=== PATIENT | female | born 1960 | race Caucasian/White ===

== ENCOUNTER 2018-01-29 19:49 | Inpatient (IN) | payer BC ==
[~2018-01-29] VITALS: Ht 165.1 cm; Wt 72.1 kg
[2018-01-29] MEDS ORDERED: ACETAMINOPHEN 325 MG TAB PO ONE (20:45)
[2018-01-29 20:52] LABS: BASOPHILS % 0.1 % (0.0-1.0); EOSINOPHILS # (AUTO) 0.5 (0.0-0.4); EOSINOPHILS % 5.3 % (0.0-6.0); LYMPHOCYTES # (AUTO) 1.4 (1.0-3.2); LYMPHOCYTES % 14.1 % (18.0-39.1); MONOCYTES # (AUTO) 0.6 (0.2-0.8); MONOCYTES % 6.1 % (4.4-11.3); NEUTROPHILS # (AUTO) 7.3 (2.1-6.9); NEUTROPHILS % 72.1 % (38.7-80.0); PLATELET COUNT 276 x10e3/uL (140-360); RED CELL DISTRIBUTION WIDTH 23.4 % (11.7-14.4)
[2018-01-29 20:53] LABS: HEMOGLOBIN 3.9 g/dL (12.0-16.0)
[2018-01-29 21:00] LABS: INR 1.28
[2018-01-29 21:01] LABS: PARTIAL THROMBOPLASTIN TIME 34.7 seconds (23.8-35.5)
[2018-01-29 21:08] LABS: % IRON SATURATION 23 % (15-50); ALANINE AMINOTRANSFERASE 72 IU/L (0-55); ALBUMIN 3.5 g/dL (3.5-5.0); ALBUMIN/GLOBULIN RATIO 1.3 (0.8-2.0); ALKALINE PHOSPHATASE 96 IU/L (40-150); ANION GAP 14.2 mmol/L (8-16); BLOOD UREA NITROGEN 8 mg/dL (7-26); BUN/CREATININE RATIO 13 (6-25); CARBON DIOXIDE 24 mmol/L (22-29); CHLORIDE 101 mmol/L (98-107); CREATINE KINASE 26 IU/L (29-168); CREATININE, SERUM 0.63 mg/dL (0.57-1.11); EST GLOMERULAR FILTRATION RATE > 60 ML/MIN (60-); GLUCOSE 206 mg/dL (74-118); IRON 76 ug/dL (50-170); POTASSIUM 4.2 mmol/L (3.5-5.1); SODIUM 135 mmol/L (136-145); TOTAL IRON BINDING CAPACITY 328 ug/dL (261-478); TRANSFERRIN 234 mg/dL (180-382)
[2018-01-29] MEDS ORDERED: SODIUM CHLORIDE 0.9% 250ML 250 ML IV ONE (21:15)
[2018-01-29 21:22] LABS: BILIRUBIN,URINE NEGATIVE (NEGATIVE); CLARITY,URINE CLEAR (CLEAR); COLOR,URINE YELLOW (YELLOW); KETONES,URINE NEGATIVE (NEGATIVE); LEUKOCYTE ESTERASE ,URINE NEGATIVE (NEGATIVE); NITRITE,URINE NEGATIVE (NEGATIVE); PROTEIN,URINE DIPSTICK NEGATIVE (NEGATIVE); URINE UROBILINOGEN 0.2 mg/dL (0.2 - 1)
[2018-01-29 21:27] LABS: FERRITIN 377.27 ng/mL (4.63-204.00)
[2018-01-29 21:42] LABS: BACTERIA,URINE FEW /HPF; EPITHELIAL CELLS,URINE RARE /LPF
--- NOTE | 2018-01-29 21:43 | Diagnostic Imaging Report ---
EXAMINATION: CHEST SINGLE (PORTABLE) INDICATION: Shortness of breath COMPARISON: None FINDINGS: TUBES and LINES: None. LUNGS: Lungs are well inflated. Lungs are clear. There is no evidence of pneumonia or pulmonary edema. PLEURA: No pleural effusion or pneumothorax. HEART AND MEDIASTINUM: The cardiomediastinal silhouette is unremarkable. BONES AND SOFT TISSUES: There are degenerative changes in the thoracic spine. Soft tissues are unremarkable. UPPER ABDOMEN: No free air under the diaphragm. IMPRESSION: No acute thoracic abnormality. Signed by: Dr. Wilfredo Nelson M.D. on 01/29/2018 9:40 PM
[2018-01-29 21:54] LABS: ANISOCYTOSIS SLIGHT; EOSINOPHILS % (MANUAL) 9 % (0-7); LYMPHOCYTES % (MANUAL) 14 % (19-48); MONOCYTES % (MANUAL) 5 % (3.4-9.0); NEUTROPHILS % (MANUAL) 71 % (40-74); NUCLEATED RED BLOOD CELLS 5
[2018-01-29 21:55] LABS: HYPOCHROMASIA MARKED; PLATELET ESTIMATE ADEQUATE; PLATELET MORPHOLOGY COMMENT NORMAL; RBC MORPHOLOGY COMMENT ABNORMAL
[2018-01-29] MEDS ORDERED: SODIUM CHLORIDE FLUSH 10 ML SYR INJ PRN (22:00)
[2018-01-29] MEDS ORDERED: ONDANSETRON HCL INJ 2 MG/ML VIAL IV PRN (22:00)
[2018-01-29] MEDS ORDERED: CYANOCOBALAMIN INJ 1,000 MCG/ML VIAL IM SCH (22:45)
[2018-01-29 23:10] VITALS: BP 119/57
[2018-01-30] VITALS (7 sets, daily range): BP systolic 113–137; BP diastolic 56–74
[2018-01-30] MEDS: FAMOTIDINE 20 MG/2 ML VIAL IV SCH ×3 (00:16→21:51)
[2018-01-30 05:59] LABS: BASOPHILS % 0.2 % (0.0-1.0); EOSINOPHILS # (AUTO) 0.3 (0.0-0.4); LYMPHOCYTES # (AUTO) 2.6 (1.0-3.2); LYMPHOCYTES % 23.2 % (18.0-39.1); MEAN CORPUSCULAR HEMOGLOBIN 38.7 pg (28-32); MEAN CORPUSCULAR HGB CONC 29.8 g/dL (31-35); MEAN CORPUSCULAR VOLUME 130.1 fL (81-99); MONOCYTES # (AUTO) 0.8 (0.2-0.8); MONOCYTES % 7.3 % (4.4-11.3); NEUTROPHILS # (AUTO) 7.2 (2.1-6.9); NEUTROPHILS % 63.9 % (38.7-80.0); PLATELET COUNT 253 x10e3/uL (140-360); RED BLOOD COUNT 0.93 x10e6/uL (3.6-5.1); RED CELL DISTRIBUTION WIDTH 22.5 % (11.7-14.4)
[2018-01-30 06:03] LABS: HEMOGLOBIN 3.6 g/dL (12.0-16.0)
[2018-01-30 06:06] LABS: HEMATOCRIT 12.1 % (34.2-44.1)
[2018-01-30 06:49] LABS: ALANINE AMINOTRANSFERASE 60 IU/L (0-55); ALBUMIN 3.2 g/dL (3.5-5.0); ALBUMIN/GLOBULIN RATIO 1.2 (0.8-2.0); ALKALINE PHOSPHATASE 85 IU/L (40-150); BLOOD UREA NITROGEN 7 mg/dL (7-26); BUN/CREATININE RATIO 11 (6-25); CALCIUM 8.6 mg/dL (8.4-10.2); CARBON DIOXIDE 25 mmol/L (22-29); CHLORIDE 99 mmol/L (98-107); CHOL/HDL RATIO 4.2 (3.0-3.6); CHOLESTEROL 109 MD/DL (0-199); CREATININE, SERUM 0.61 mg/dL (0.57-1.11); EST GLOMERULAR FILTRATION RATE > 60 ML/MIN (60-); GLUCOSE 175 mg/dL (74-118); HDL CHOLESTEROL 26 MG/DL (40-60); LDL CHOLESTEROL 50 MG/DL (60-130); SODIUM 131 mmol/L (136-145); TRIGLYCERIDES 167 MG/DL (0-149)
[2018-01-30 07:46] LABS: FOLATE 14.1 ng/mL (7.0-15.4)
[2018-01-30] MEDS ORDERED: DEXTROSE 50% SYRINGE 50 ML IV PRN (08:45)
[2018-01-30] MEDS: ACETAMINOPHEN 325 MG TAB PO PRN ×2 (08:51→17:21)
[2018-01-30] MEDS ORDERED: CYANOCOBALAMIN INJ 1,000 MCG/ML VIAL IM SCH (09:00)
[2018-01-30 09:01] LABS: ANISOCYTOSIS MODERATE; EOSINOPHILS % (MANUAL) 3 % (0-7); HYPOCHROMASIA MARKED; LYMPHOCYTES % (MANUAL) 23 % (19-48); MONOCYTES % (MANUAL) 2 % (3.4-9.0); MYELOCYTES % (MANUAL) 3 % (0-0); NEUTROPHILS % (MANUAL) 69 % (40-74); NUCLEATED RED BLOOD CELLS 2; PLATELET ESTIMATE ADEQUATE; PLATELET MORPHOLOGY COMMENT NORMAL; POIKILOCYTOSIS MODERATE; POLYCHROMASIA FEW; RBC MORPHOLOGY COMMENT ABNORMAL
--- NOTE | 2018-01-30 09:09 | History and Physical ---
PRIMARY CARE PHYSICIAN: Dr. Trey Venegas CONSULTANTS: 1. Dr. Cristóbal Lundberg 2. Dr. Marcela Buchanan CHIEF COMPLAINT: Chest pain, shortness of breath, and severe anemia of 3.6 hemoglobin, hematocrit 12.1. HISTORY: Elfed-aafo-movm-old female who was recently diagnosed with anemia, hemoglobin above 5. Patient came in, however, now within a week with increasing chest pain and shortness of breath. Her hemoglobin and hematocrit now are 3.6 and 12.1. BUN and creatinine are 7 and 0.6 respectively. Platelets is 253,000 and WBC is 11.2. Patient is pending for blood transfusion and further workup. The patient is otherwise stable. She had no previous history of anemia. She has no previous surgical intervention or any chronic medical problem. PAST MEDICAL HISTORY: Unremarkable. PAST SURGICAL HISTORY: Unremarkable. SOCIAL HISTORY: Patient lives at home with her family, very supportive. No smoking, no alcohol consumption. No recent traveling. FAMILY HISTORY: Noncontributory. REVIEW OF SYSTEMS: Shortness of breath, chest pain. PHYSICAL EXAMINATION: VITAL SIGNS: Temperature is now 100, blood pressure 126/58, pulse rate is high 110, respirations 20. GENERAL: The patient is anxious, but she is not in any distress. HEENT: Normocephalic, atraumatic. Sclerae anicteric. NECK: Supple grossly. PULMONARY: Diminished breath sounds without any wheezing or rales. CARDIOVASCULAR: Tachycardia. ABDOMEN: Soft, nontender. No distention. EXTREMITIES: No gross cyanosis. Positive 1+ edema. NEUROLOGIC: No gross focal deficit. LABORATORY: Sodium is 131, potassium 4, chloride 99, bicarb 25, BUN 7, creatinine 0.6, glucose is 175. WBC is 11.2, hemoglobin 3.6, hematocrit 12.1, platelets is 253,000. AST is 57, ALT is 72, alkaline phosphatase is 96. Iron saturation is 23, total iron binding capacity 328, iron 76, calcium 9.0. Ferritin is 377. Total bilirubin is 3.6, CK is 26, albumin 3.5. Vitamin B12 level is greater than 2000. Folate is 4.1. TSH is 0.24. Urinalysis, 1+ glucose. IMAGING: Chest x-ray, no acute thoracic abnormality. IMPRESSION: 1. Severe symptomatic anemia. 2. Macrocytic anemia. 3. Shortness of breath. 4. Tachycardia from the above. PLAN: Blood transfusion. Consultation with Dr. Cristóbal Lundberg. Consultation with Dr. Marcela Buchanan, gastroenterology. CT scan of the abdomen and pelvis with contrast. Will obtain LDH, retic count, . Will workup for anemia. Job#: [id number] cc:TREY VENEGAS MD
[2018-01-30] MEDS ORDERED: IMMUNE GLOBULIN 10%,10GM/100ML 300 ML IV SCH (10:00)
[2018-01-30] MEDS: SODIUM CHLORIDE 0.9% 1000ML 1,000 ML IV SCH (10:05)
[2018-01-30] MEDS: IMMUNE GLOBULIN IV SCH ×2 (11:12→17:54)
[2018-01-30] MEDS ORDERED: SODIUM CHLORIDE 0.9% 250ML 250 ML ONE ×2 (12:42→18:09)
[2018-01-30] MEDS: INSULIN LISPRO 100 UNIT/1 ML 3ML VIAL SQ SCH ×3 (12:57→21:52)
[2018-01-30] MEDS: DANAZOL 100 MG CAP PO SCH ×3 (12:57→20:44)
[2018-01-30] MEDS: METHYLPREDNISOLONE SOD SUCC 125 MG/2ML VIAL IV SCH ×3 (12:57→21:51)
[2018-01-30] MEDS: FUROSEMIDE INJ 10 MG/ML 2 ML VIAL IV PRN ×2 (13:20→18:28)
--- NOTE | 2018-01-30 13:52 | Diagnostic Imaging Report ---
PROCEDURE: CT ABDOMEN AND PELVIS WITH CONTRAST TECHNIQUE: The abdomen and pelvis were scanned utilizing a multidetector helical scanner from the diaphragm to the lesser trochanter after the IV administration of 100 cc of Isovue 370 and the oral administration of water. Coronal and sagittal multiplanar reformations were obtained. COMPARISON: None. INDICATIONS: ANEMIA FINDINGS: LOWER THORAX: Trace bilateral pleural effusions and associated minimal bilateral lower lobe compressive atelectasis. Linear opacities in bilateral lower lobes likely reflect subsegmental atelectasis or scarring. HEPATOBILIARY: Normal hepatic contour. No focal lesions. No biliary ductal dilation. Marked gallbladder wall thickening. No radiopaque stones are identified. No surrounding fat stranding SPLEEN: No splenomegaly. PANCREAS: No focal masses or ductal dilatation. ADRENALS: No adrenal nodules. KIDNEYS/URETERS: No hydronephrosis, stones, or solid mass lesions. PELVIC ORGANS/BLADDER: Bladder and uterus are unremarkable. No adnexal masses. PERITONEUM / RETROPERITONEUM: Trace free fluid in the pelvic cul-de-sac. LYMPH NODES: No lymphadenopathy. VESSELS: Mild atherosclerotic calcification of the distal abdominal aorta GI TRACT: No bowel dilation or evidence of obstruction. No pericolonic inflammatory changes. Stomach is unremarkable. Appendix is identified, and normal in caliber. BONES AND SOFT TISSUES: No aggressive lytic lesions. S-shaped curvature of the thoracolumbar spine, with associated mild degenerative changes. Small, fat-containing umbilical hernia. Mild soft tissue edema in the pelvis. IMPRESSION: 1. marked bladder wall thickening. No radiopaque stones are identified. No surrounding fat stranding. Recommend right upper quadrant ultrasound for further evaluation. 2. Essentially unremarkable appearance of the bowel. 3. Trace bilateral pleural effusions and minimal bilateral lower lobe compressive atelectasis. Juan Alberto Madrid M.D. Dictated by: Juan Alberto Madrid M.D. on 01/30/2018 at 13:58 Electronically approved by: Juan Alberto Madrid M.D. on 01/30/2018 at 13:58
[2018-01-30] MEDS ORDERED: SODIUM CHLORIDE 0.9% 50ML 50 ML ONE (13:53)
[2018-01-30] MEDS ORDERED: IOPAMIDOL 370 MG/ML 200 ML INFUS..BTL INJ ONE (13:53)
--- NOTE | 2018-01-30 19:58 | Consultation ---
DATE OF CONSULTATION: January 30, 2018 PRIMARY CARE PHYSICIAN: Dr. Uriah Penaloza REASON FOR CONSULTATION: Anemia. CHIEF COMPLAINT: Shortness of breath and chest pain. HISTORY: The patient is a 57-year-old female with a past medical history that is not very significant. She presented with recently diagnosed anemia with a hemoglobin below 5. The patient states that she came in after traveling with her family and noticed increasing shortness of breath, chest pain, headaches and feeling weak. In the hospital, the patient was found to have a hemoglobin of 3.6. The patient was also found to be jaundiced. BUN has been 7. Creatinine 0.6. The patient has received 1 unit of blood cells so far, but the patient also has antibodies. She has had no previous history of anemia, hospitalizations, surgeries or need for blood transfusions. PAST MEDICAL HISTORY: Unremarkable. PAST SURGICAL HISTORY: Unremarkable. FAMILY HISTORY: Father has a history of anemia and melanoma. SOCIAL HISTORY: No smoking. Denies any alcohol consumption. REVIEW OF SYSTEMS: Chest pain, shortness of breath, fatigue and jaundice. PHYSICAL EXAMINATION: VITAL SIGNS: Temperature 99, pulse 99, respiratory rate 18, blood pressure 137/74, pulse oximetry 98%. GENERAL: Alert, oriented and in no acute distress. HEENT: Normocephalic, atraumatic. Icteric sclerae. NECK: Nontender and supple. PULMONARY: Diminished breath sounds, no wheezing, no rales. CARDIOVASCULAR: Tachycardiac. ABDOMEN: Soft and nontender to palpation. No distension. No guarding. SKIN: Abnormal color, pallor. EXTREMITIES: No cyanosis, clubbing or edema. NEUROLOGIC: Alert and oriented x3. PSYCHIATRIC: Pleasant, no anxiety. Normal affect. LABORATORY DATA: Hemoglobin 3.6, hematocrit 12.1, platelets 253,000, sodium 131. MCV 130. Iron studies 23, TIBC 328, ferritin 377, B12 greater than 2000, folate 4.1. IMAGING: Chest x-ray unremarkable. IMPRESSION 1. Macrocytic anemia, most likely hemolysis/hematologic problem 2. Shortness of breath. 3. Tachycardia. 4. Elevated LFT, likely hemolysis PLAN: 1. Continue with blood transfusion. Heme/onc is following for anemia. The patient most likely does not have GI involvement, but we will follow. 2. Collect stool samples to check for blood. Occult blood is currently pending. 3. Outpatient screening colonoscopy advised. Thank you for consulting. We will follow. Job#: [id number] GH [id number]
[2018-01-31] VITALS (7 sets, daily range): BP systolic 111–140; BP diastolic 62–79
[2018-01-31] MEDS: IMMUNE GLOBULIN IV SCH ×3 (01:17→18:09)
[2018-01-31] MEDS: METHYLPREDNISOLONE SOD SUCC 125 MG/2ML VIAL IV SCH ×2 (05:12→14:34)
[2018-01-31 05:57] LABS: BASOPHILS % 0.2 % (0.0-1.0); EOSINOPHILS % 0.1 % (0.0-6.0); LYMPHOCYTES # (AUTO) 2.8 (1.0-3.2); MEAN CORPUSCULAR HEMOGLOBIN 35.3 pg (28-32); MEAN CORPUSCULAR HGB CONC 32.4 g/dL (31-35); MEAN CORPUSCULAR VOLUME 108.8 fL (81-99); MONOCYTES # (AUTO) 0.4 (0.2-0.8); MONOCYTES % 3.3 % (4.4-11.3); NEUTROPHILS # (AUTO) 8.6 (2.1-6.9); NEUTROPHILS % 71.3 % (38.7-80.0); PLATELET COUNT 204 x10e3/uL (140-360); RED CELL DISTRIBUTION WIDTH 26.2 % (11.7-14.4); RETICULOCYTE % 18.4 % (0.8-2.2)
[2018-01-31 06:07] LABS: HEMATOCRIT 18.5 % (34.2-44.1)
[2018-01-31 06:24] LABS: ALANINE AMINOTRANSFERASE 51 IU/L (0-55); ALBUMIN 3.3 g/dL (3.5-5.0); ALBUMIN/GLOBULIN RATIO 0.9 (0.8-2.0); ALKALINE PHOSPHATASE 84 IU/L (40-150); ANION GAP 14.4 mmol/L (8-16); BLOOD UREA NITROGEN 13 mg/dL (7-26); BUN/CREATININE RATIO 19 (6-25); CARBON DIOXIDE 25 mmol/L (22-29); CHLORIDE 102 mmol/L (98-107); CREATININE, SERUM 0.69 mg/dL (0.57-1.11); EST GLOMERULAR FILTRATION RATE > 60 ML/MIN (60-); GLUCOSE 254 mg/dL (74-118); POTASSIUM 4.4 mmol/L (3.5-5.1); SODIUM 137 mmol/L (136-145)
[2018-01-31] MEDS: SODIUM CHLORIDE 0.9% 1000ML 1,000 ML IV SCH (08:55)
[2018-01-31] MEDS: DANAZOL 100 MG CAP PO SCH ×4 (08:55→21:52)
[2018-01-31] MEDS: INSULIN LISPRO 100 UNIT/1 ML 3ML VIAL SQ SCH ×4 (08:58→21:53)
[2018-01-31] MEDS ORDERED: CYANOCOBALAMIN INJ 1,000 MCG/ML VIAL IM SCH (09:00)
[2018-01-31] MEDS: FAMOTIDINE 20 MG/2 ML VIAL IV SCH ×2 (10:52→21:53)
[2018-01-31] MEDS: PREDNISONE 20 MG TAB PO SCH (18:10)
[2018-02-01] VITALS (7 sets, daily range): BP systolic 116–145; BP diastolic 65–71
[2018-02-01] MEDS: IMMUNE GLOBULIN IV SCH ×3 (02:07→18:37)
[2018-02-01] MEDS: SODIUM CHLORIDE 0.9% 1000ML 1,000 ML IV SCH ×2 (02:07→09:45)
[2018-02-01 05:52] LABS: BASOPHILS % 0.2 % (0.0-1.0); EOSINOPHILS % 0.1 % (0.0-6.0); LYMPHOCYTES # (AUTO) 2.2 (1.0-3.2); LYMPHOCYTES % 17.6 % (18.0-39.1); MEAN CORPUSCULAR HEMOGLOBIN 35.8 pg (28-32); MEAN CORPUSCULAR HGB CONC 31.5 g/dL (31-35); MEAN CORPUSCULAR VOLUME 113.6 fL (81-99); MONOCYTES # (AUTO) 0.7 (0.2-0.8); MONOCYTES % 5.4 % (4.4-11.3); NEUTROPHILS # (AUTO) 8.9 (2.1-6.9); NEUTROPHILS % 73.2 % (38.7-80.0); PLATELET COUNT 215 x10e3/uL (140-360); RED BLOOD COUNT 1.62 x10e6/uL (3.6-5.1); RED CELL DISTRIBUTION WIDTH 26.1 % (11.7-14.4)
[2018-02-01 06:06] LABS: HEMATOCRIT 18.4 % (34.2-44.1); HEMOGLOBIN 5.8 g/dL (12.0-16.0)
[2018-02-01 07:00] LABS: BLOOD UREA NITROGEN 15 mg/dL (7-26); BUN/CREATININE RATIO 22 (6-25); CHLORIDE 101 mmol/L (98-107); CREATININE, SERUM 0.67 mg/dL (0.57-1.11); EST GLOMERULAR FILTRATION RATE > 60 ML/MIN (60-); POTASSIUM 4.4 mmol/L (3.5-5.1); SODIUM 135 mmol/L (136-145)
[2018-02-01 07:12] LABS: ANION GAP 15.4 mmol/L (8-16); CARBON DIOXIDE 23 mmol/L (22-29)
[2018-02-01] MEDS: INSULIN LISPRO 100 UNIT/1 ML 3ML VIAL SQ SCH ×4 (07:30→20:55)
[2018-02-01] MEDS: DANAZOL 100 MG CAP PO SCH ×4 (09:00→22:06)
[2018-02-01] MEDS ORDERED: INSULIN DETEMIR 100 UNIT/ML PEN SQ NR (09:00)
[2018-02-01] MEDS: PREDNISONE 20 MG TAB PO SCH (09:01)
[2018-02-01] MEDS: FAMOTIDINE 20 MG/2 ML VIAL IV SCH ×2 (10:26→22:06)
--- NOTE | 2018-02-01 11:51 | Consultation ---
DATE OF CONSULTATION: January 30, 2018 ATTENDING PHYSICIAN: Dr. Adan Escalante. HISTORY OF PRESENT ILLNESS: Elba Allen is a 57-year-old white female referred to me for evaluation of anemia. No history of hematochezia, melena, hematuria, hematemesis, or hemoptysis. The patient claims that she had an upper respiratory tract infection approximately 2 weeks back, was given Medrol Dosepak and antibiotics. The patient had been feeling weak, subsequently started feeling dizzy, subsequently was seen and found to have hemoglobin of 3.6, subsequently admitted for further evaluation and treatment. SOCIAL HISTORY: Noncontributory. FAMILY HISTORY: Noncontributory. ALLERGIES: REPORTED NONE. MEDICATIONS: Consist of 1. Tylenol. 2. Lasix. 3. Insulin. 4. Cyanocobalamin. 5. Pepcid. REVIEW OF SYSTEMS HEENT: Normal. CARDIAC: Normal. RESPIRATORY: Normal. GI: Normal. : Normal. MUSCULOSKELETAL: Normal. SKIN AND BREASTS: Normal. NEUROENDOCRINE: At the present time has hyperglycemia. PHYSICAL EXAMINATION GENERAL: A moderately built female, very anemic, jaundice. No palpable adenopathy. HEART: Within normal limits. LUNGS: Clear. BREASTS: Deferred. ABDOMEN: Obese. RECTAL AND VAGINAL: Deferred. CENTRAL NERVOUS SYSTEM: Essentially normal. EXTREMITIES: Essentially normal. LABORATORY DATA: Shows a hemoglobin of 3.9, hematocrit 13 on 01/29/2018. I was consulted on 01/30/2018. The hemoglobin had dropped down to 3.6 with hematocrit 12.1, a high MCV of 130.1, MCHC 29.8, RDW high at 22.5, white count 11,250 with a platelet count of 253,000, 69 neutrophils, 23 lymphocytes, 2 mono, 3 eos, 3 myelocyte, 2 nucleated red blood cells. Chemistry showed a sodium of 135, potassium 4.2, chloride 101, CO2 of 24, BUN 8, creatinine 0.6, glucose 206, calcium 9.0, iron 76, iron binding capacity 328, iron saturation 23, transferrin 234, ferritin 377, bilirubin high at 3.6, SGOT 57, SGPT 72, alkaline phosphatase 96, and CK 26. Total protein is low at 6.2, albumin 3.5, globulins 2.7, B12 levels reported more than 2000, folic acid level reported at 14.1, and TSH low at 0.246. The patient also had a chest x-ray, which was reported essentially normal. The patient also had a CAT scan prior to me seen this patient and it was suggested that there was marked bladder wall thickening, essentially unremarkable appearance of the bowel, trace bilateral pleural effusions, minimal bilateral lower lobe compression atelectasis. 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 2. Possible concomitant iron deficiency with an MCHC low at 30, high ferritin possibly due to acute hemolysis. 3. 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 4. Diabetes mellitus. 5. Hypoproteinemia. 6. Possible urinary tract infection as she does have a few wbc's in the urine and a few bacteria. PLAN, COMMENTS, AND SUGGESTIONS: Suggest IVIG, suggest Danocrine, suggest prednisone dose of 1 mg/kg body weight. I have spoken to her family, one of them being a physician who works in the emergency room and one of them being a physician assistant fitness manager and , very prolonged discussion was carried out the dangers of hemolysis including renal failure. I have also discussed at length the chance of response is 70% with steroids. The danger of IVIG being a large molecule with renal failure, was also discussed Danocrine, which potentiates the effect of prednisone was also discussed. As this is acute hemolysis, I am going to start her on Solu-Medrol and once she does have showed response, started on prednisone 1 mg/kg body weight. Only closely matched blood will be given'; otherwise, she will have a hemolysis if possible. I would not discharge the patient unless the retic response in less than 2% and she shows some signs of recovery. BUN, creatinine, electrolytes as well as retic response will be monitored daily and whether the patient's family does have a physician and a physician assistant fitness manager as this was very easy to explain to this highly educated family. The was also part of the discussion. Thank you very much for allowing me to participate in the management of this patient. Job#: [id number] KRISTOFER cc:MD TREY CASTRO MD RACHEL SCHIESSER, MD
[2018-02-01 13:13] LABS: BAND NEUTROPHILS % (MANUAL) 5 %; LYMPHOCYTES % (MANUAL) 19 % (19-48); METAMYELOCYTES % (MANUAL) 2 % (0-0); MONOCYTES % (MANUAL) 4 % (3.4-9.0); MYELOCYTES % (MANUAL) 2 % (0-0); NEUTROPHILS % (MANUAL) 68 % (40-74); NUCLEATED RED BLOOD CELLS 11
[2018-02-01 13:16] LABS: HYPOCHROMASIA SLIGHT; OVALOCYTES FEW; PLATELET ESTIMATE ADEQUATE; PLATELET MORPHOLOGY COMMENT NORMAL; POLYCHROMASIA MODERATE; RBC MORPHOLOGY COMMENT ABNORMAL
[2018-02-02] VITALS (8 sets, daily range): BP systolic 122–158; BP diastolic 62–77
[2018-02-02] MEDS: IMMUNE GLOBULIN IV SCH ×2 (01:28→19:07)
[2018-02-02 05:50] LABS: BASOPHILS % 0.2 % (0.0-1.0); LYMPHOCYTES # (AUTO) 3.3 (1.0-3.2); LYMPHOCYTES % 28.2 % (18.0-39.1); MEAN CORPUSCULAR HEMOGLOBIN 35.3 pg (28-32); MEAN CORPUSCULAR HGB CONC 30.6 g/dL (31-35); MEAN CORPUSCULAR VOLUME 115.4 fL (81-99); MONOCYTES # (AUTO) 1.1 (0.2-0.8); NEUTROPHILS # (AUTO) 6.8 (2.1-6.9); NEUTROPHILS % 57.4 % (38.7-80.0); PLATELET COUNT 244 x10e3/uL (140-360); RED BLOOD COUNT 1.56 x10e6/uL (3.6-5.1); RED CELL DISTRIBUTION WIDTH 26.6 % (11.7-14.4)
[2018-02-02 05:55] LABS: HEMOGLOBIN 5.5 g/dL (12.0-16.0)
[2018-02-02 05:59] LABS: ANION GAP 11.1 mmol/L (8-16); BLOOD UREA NITROGEN 16 mg/dL (7-26); BUN/CREATININE RATIO 22 (6-25); CARBON DIOXIDE 25 mmol/L (22-29); CHLORIDE 103 mmol/L (98-107); CREATININE, SERUM 0.72 mg/dL (0.57-1.11); EST GLOMERULAR FILTRATION RATE > 60 ML/MIN (60-); POTASSIUM 4.1 mmol/L (3.5-5.1); SODIUM 135 mmol/L (136-145)
[2018-02-02] MEDS: INSULIN LISPRO 100 UNIT/1 ML 3ML VIAL SQ SCH ×4 (07:30→22:15)
[2018-02-02] MEDS: DANAZOL 100 MG CAP PO SCH ×4 (09:00→22:15)
[2018-02-02] MEDS: PREDNISONE 20 MG TAB PO SCH (09:00)
[2018-02-02] MEDS: FAMOTIDINE 20 MG/2 ML VIAL IV SCH ×2 (10:00→22:00)
[2018-02-02] MEDS ORDERED: SODIUM CHLORIDE 0.9% 250ML 250 ML IV ONE (10:30)
[2018-02-02] MEDS ORDERED: FAMOTIDINE 20 MG/2 ML VIAL IV ONE (10:45)
[2018-02-02] MEDS ORDERED: DIPHENHYDRAMINE HCL INJ 50 MG/ML VIAL IV ONE (10:45)
[2018-02-02] MEDS ORDERED: DEXAMETHASONE SOD PHOS 10 MG/1 ML VIAL IV ONE (10:45)
[2018-02-02] MEDS ORDERED: ACETAMINOPHEN 325 MG TAB PO ONE (10:45)
[2018-02-02] MEDS: SODIUM CHLORIDE 0.9% 1000ML 1,000 ML IV SCH (14:38)
[2018-02-02] MEDS ORDERED: SODIUM CHLORIDE 0.9% 250ML 250 ML ONE (14:41)
[2018-02-02] MEDS ORDERED: ACETAMINOPHEN 325 MG TAB PO NR (14:45)
[2018-02-02] MEDS ORDERED: DIPHENHYDRAMINE HCL INJ 50 MG/ML VIAL IV NR (14:45)
[2018-02-02] MEDS ORDERED: DEXAMETHASONE PHOS 10MG INJ 40 MG in SODIUM CHLORIDE 0.9% 50ML 50 ML IV NR (15:00)
[2018-02-02] MEDS ORDERED: FAMOTIDINE 20 MG/2 ML VIAL IV NR (15:00)
[2018-02-03] VITALS (8 sets, daily range): BP systolic 131–161; BP diastolic 62–77
[2018-02-03] MEDS: FUROSEMIDE INJ 10 MG/ML 2 ML VIAL IV PRN (00:25)
[2018-02-03] MEDS: IMMUNE GLOBULIN IV SCH ×4 (00:29→20:35)
[2018-02-03 05:39] LABS: BASOPHILS % 0.2 % (0.0-1.0); HEMOGLOBIN 7.1 g/dL (12.0-16.0); LYMPHOCYTES # (AUTO) 1.8 (1.0-3.2); LYMPHOCYTES % 21.4 % (18.0-39.1); MEAN CORPUSCULAR HGB CONC 31.6 g/dL (31-35); MEAN CORPUSCULAR VOLUME 110.8 fL (81-99); MONOCYTES # (AUTO) 0.5 (0.2-0.8); MONOCYTES % 5.8 % (4.4-11.3); NEUTROPHILS # (AUTO) 5.7 (2.1-6.9); NEUTROPHILS % 66.8 % (38.7-80.0); PLATELET COUNT 189 x10e3/uL (140-360); RED BLOOD COUNT 2.03 x10e6/uL (3.6-5.1); RED CELL DISTRIBUTION WIDTH 23.6 % (11.7-14.4)
[2018-02-03 05:52] LABS: HEMATOCRIT 22.5 % (34.2-44.1)
[2018-02-03 06:05] LABS: ANION GAP 12.2 mmol/L (8-16); BLOOD UREA NITROGEN 19 mg/dL (7-26); BUN/CREATININE RATIO 25 (6-25); CARBON DIOXIDE 25 mmol/L (22-29); CHLORIDE 99 mmol/L (98-107); CREATININE, SERUM 0.75 mg/dL (0.57-1.11); EST GLOMERULAR FILTRATION RATE > 60 ML/MIN (60-); POTASSIUM 4.2 mmol/L (3.5-5.1); SODIUM 132 mmol/L (136-145)
[2018-02-03 07:05] LABS: LYMPHOCYTES % (MANUAL) 21 % (19-48); MONOCYTES % (MANUAL) 6 % (3.4-9.0); MYELOCYTES % (MANUAL) 1 % (0-0); NEUTROPHILS % (MANUAL) 72 % (40-74); NUCLEATED RED BLOOD CELLS 5
[2018-02-03 07:09] LABS: ANISOCYTOSIS SLIGHT
[2018-02-03 07:10] LABS: PLATELET ESTIMATE ADEQUATE; PLATELET MORPHOLOGY COMMENT NORMAL; RBC MORPHOLOGY COMMENT NORMAL
[2018-02-03] MEDS: DANAZOL 100 MG CAP PO SCH ×4 (09:08→21:44)
[2018-02-03] MEDS: PREDNISONE 20 MG TAB PO SCH (09:08)
[2018-02-03] MEDS: INSULIN LISPRO 100 UNIT/1 ML 3ML VIAL SQ SCH ×4 (09:18→21:30)
[2018-02-03] MEDS: SODIUM CHLORIDE 0.9% 1000ML 1,000 ML IV SCH (11:23)
[2018-02-03] MEDS: FAMOTIDINE 20 MG/2 ML VIAL IV SCH ×2 (11:23→21:43)
[2018-02-04] VITALS (7 sets, daily range): BP systolic 143–161; BP diastolic 74–79
[2018-02-04] MEDS: IMMUNE GLOBULIN IV SCH (04:30)
[2018-02-04 06:28] LABS: ANION GAP 13.9 mmol/L (8-16); BLOOD UREA NITROGEN 17 mg/dL (7-26); BUN/CREATININE RATIO 24 (6-25); CARBON DIOXIDE 22 mmol/L (22-29); CHLORIDE 103 mmol/L (98-107); EST GLOMERULAR FILTRATION RATE > 60 ML/MIN (60-); POTASSIUM 3.9 mmol/L (3.5-5.1); SODIUM 135 mmol/L (136-145)
[2018-02-04 06:49] LABS: BASOPHILS % 0.2 % (0.0-1.0); HEMOGLOBIN 7.2 g/dL (12.0-16.0); LYMPHOCYTES # (AUTO) 1.6 (1.0-3.2); LYMPHOCYTES % 19.7 % (18.0-39.1); MEAN CORPUSCULAR HGB CONC 31.7 g/dL (31-35); MEAN CORPUSCULAR VOLUME 110.2 fL (81-99); MONOCYTES # (AUTO) 0.9 (0.2-0.8); MONOCYTES % 10.6 % (4.4-11.3); NEUTROPHILS # (AUTO) 5.3 (2.1-6.9); NEUTROPHILS % 64.5 % (38.7-80.0); PLATELET COUNT 204 x10e3/uL (140-360); RED BLOOD COUNT 2.06 x10e6/uL (3.6-5.1); RED CELL DISTRIBUTION WIDTH 25.1 % (11.7-14.4)
[2018-02-04 06:54] LABS: HEMATOCRIT 22.7 % (34.2-44.1)
[2018-02-04] MEDS: DANAZOL 100 MG CAP PO SCH ×4 (09:06→21:41)
[2018-02-04] MEDS: PREDNISONE 20 MG TAB PO SCH (09:07)
[2018-02-04] MEDS: INSULIN LISPRO 100 UNIT/1 ML 3ML VIAL SQ SCH ×4 (09:08→21:43)
[2018-02-04] MEDS: FAMOTIDINE 20 MG/2 ML VIAL IV SCH ×2 (10:00→21:41)
[2018-02-04] MEDS: SODIUM CHLORIDE 0.9% 1000ML 1,000 ML IV SCH (11:27)
[2018-02-05] VITALS: BP_SYST 150; BP_DIAS 149; BP_DIAS 74
[2018-02-05 04:00] VITALS: BP 154/81
[2018-02-05 05:38] LABS: BASOPHILS % 0.1 % (0.0-1.0); EOSINOPHILS % 0.1 % (0.0-6.0); HEMATOCRIT 23.2 % (34.2-44.1); HEMOGLOBIN 7.5 g/dL (12.0-16.0); LYMPHOCYTES # (AUTO) 3.1 (1.0-3.2); MEAN CORPUSCULAR HEMOGLOBIN 35.5 pg (28-32); MEAN CORPUSCULAR HGB CONC 32.3 g/dL (31-35); MONOCYTES # (AUTO) 0.8 (0.2-0.8); MONOCYTES % 9.1 % (4.4-11.3); NEUTROPHILS # (AUTO) 4.9 (2.1-6.9); NEUTROPHILS % 53.5 % (38.7-80.0); PLATELET COUNT 235 x10e3/uL (140-360); RED BLOOD COUNT 2.11 x10e6/uL (3.6-5.1); RED CELL DISTRIBUTION WIDTH 25.2 % (11.7-14.4)
[2018-02-05 05:55] LABS: ANION GAP 11.9 mmol/L (8-16); BLOOD UREA NITROGEN 15 mg/dL (7-26); BUN/CREATININE RATIO 20 (6-25); CARBON DIOXIDE 23 mmol/L (22-29); CHLORIDE 102 mmol/L (98-107); CREATININE, SERUM 0.74 mg/dL (0.57-1.11); EST GLOMERULAR FILTRATION RATE > 60 ML/MIN (60-); POTASSIUM 3.9 mmol/L (3.5-5.1); SODIUM 133 mmol/L (136-145)
[2018-02-05 07:20] VITALS: BP 176/81
[2018-02-05] MEDS: INSULIN LISPRO 100 UNIT/1 ML 3ML VIAL SQ SCH (07:30)
[2018-02-05] MEDS: PREDNISONE 20 MG TAB PO SCH (08:21)
[2018-02-05] MEDS: DANAZOL 100 MG CAP PO SCH (08:21)
[2018-02-05] MEDS: FAMOTIDINE 20 MG/2 ML VIAL IV SCH (09:05)
[2018-02-05 09:32] VITALS: BP 176/81
[2018-02-05] MEDS ORDERED: FAMOTIDINE20 MG PO (13:05)
[2018-02-05] MEDS ORDERED: DANAZOL200 MG PO (13:06)
[2018-02-05] MEDS ORDERED: PREDNISONE20 MG PO (13:07)
--- NOTE | 2018-02-06 09:16 | Discharge Summary ---
PCP: Dr. Uriah Penaloza MENTAL HEALTH CONSULTANT: Dr. Cristóbal Lundberg, tack welder FINAL DIAGNOSES: 1. Hemolytic anemia. 2. Severe symptomatic anemia associated with chest pain and shortness of breath. Hemoglobin was less than 4. SUMMARY: Patient is a 57-year-old female came in with hemoglobin less than 4. Patient had workup. She has severe hemolytic anemia. Patient did receive 2 units of blood transfusion. After that, she received IVIG along with prednisone, first Solu-Medrol and then subsequently prednisone. Her retic count was very elevated in the beginning, but subsequently subsided. Patient was stable. She progressively improved. Her hemoglobin on discharge February 05, 2018 was near 8. Her retic count was less than 10. Patient was stable. The patient was subsequently discharged home with prednisone and danazol. The patient was stable. She is to follow up with Dr. Cristóbal Lundberg for outpatient treatment. All instructions were given. Patient was stable on discharge. Job#: [id number]
--- OUTSIDE RECORDS SUMMARY | 2018-03-22 01:32 | XMS REPORT ---
Author Author [facility] Address Unknown Phone Unavailable Care Team Providers Care Biomedical Engineer Name Role Phone ALFREDA BENAVIDES Unavailable Unavailable Problems This patient has no known problems. Allergies, Adverse Reactions, Alerts This patient has no known allergies or adverse reactions. Medications This patient has no known medications. Results Test Description Test Time Test Comments Text Results Atomic Results Result Comments CT ABDOMEN/PELVIS W 2018-01-30 13:58:00 [id number] [place], [place] [address] Patient Name: COLE EDMONDSON MR #: [id number] : 1960 Age/Sex: 57/F Req #: [id number] [facility] Physician: ALFREDA BENAVIDES MD Ordered by: ALFREDA BENAVIDES MD Report #: [id number] Location: MED/SURG Room/Bed: [facility] Procedure: [id number] CT/CT ABDOMEN/PELVIS W Exam Date : 01/30/18 Exam Time: 1200 REPORT STATUS: Signed PROCEDURE: CT ABDOMEN AND PELVIS WITH CONTRAST TECHNIQUE: The abdomen and pelvis were scanned utilizing a multidetector helical scanner from the diaphragm to the lesser trochanter after the IV administration of 100 cc of Isovue 370 and the oral administration of water. Coronal and sagittal multiplanar reformations were obtained. COMPARISON : None. INDICATIONS: ANEMIA FINDINGS: LOWER THORAX: Trace bilateral pleural effusions and associated minimal bilateral lower lobe compressive atelectasis. Linear opacities in bilateral lower lobes likely reflect subsegmental atelectasis or scarring. HEPATOBILIARY: Normal hepatic contour. No focal lesions. No biliary ductal dilation. Marked gallbladder wall thickening. No radiopaque stones are identified. No surrounding fat stranding SPLEEN: No splenomegaly. PANCREAS: No focal masses or ductal dilatation. ADRENALS: No adrenal nodules. KIDNEYS/URETERS: No hydronephrosis, stones, or solid mass lesions. PELVIC ORGANS/BLADDER: Bladder and uterus are unremarkable. No adnexal masses. PERITONEUM / RETROPERITONEUM: Trace free fluid in the pelvic cul-de-sac. LYMPH NODES: No lymphadenopathy. VESSELS: Mild atherosclerotic calcification of the distal abdominal aorta GI TRACT: No bowel dilation or evidence of obstruction. No pericolonic inflammatory changes. Stomach is unremarkable. Appendix is identified, and normal in caliber. BONES AND SOFT TISSUES: No aggressive lytic lesions. S-shaped curvature of the thoracolumbar spine, with associated mild degenerative changes. Small, fat-containing umbilical hernia. Mild soft tissue edema in the pelvis. IMPRESSION: 1. marked bladder wall thickening. No radiopaque stones are identified. No surrounding fat stranding. Recommend right upper quadrant ultrasound for further evaluation. 2. Essentially unremarkable appearance of the bowel. 3. Trace bilateral pleural effusions and minimal bilateral lower lobe compressive atelectasis. Johanna Madrid M.D. Dictated by: Johanna Madrid M.D. on 01/30/2018 at 13:58 Electronically approved by : Johanna Madrid M.D. on 01/30/2018 at 13:58 Dictated By: JOHANNA MADRID MD [id number] Transcribed By: BACILIO on 01/30/18 1358 COPY TO: ALFREDA BENAVIDES MD CHEST SINGLE (PORTABLE) 2018-01-29 21:39:00 [place] [address] Patient Name: COLE EDMONDSON MR #: [id number] : 1960 Age/Sex: 57/F Req #: [id number] Adm Physician: Ordered by: KATIE BOWEN MD Report #: [id number] Location: ER Room/Bed: ____ Procedure: [id number] DX/CHEST SINGLE (PORTABLE) Exam Date: 01/29/18 Exam Time: 2029 REPORT STATUS: Signed EXAMINATION: CHEST SINGLE (PORTABLE) INDICATION: Shortness of breath COMPARISON: None FINDINGS: TUBES and LINES: None. LUNGS: Lungs are well inflated. Lungs are clear. There is no evidence of pneumonia or pulmonary edema. PLEURA: No pleural effusion or pneumothorax. HEART AND MEDIASTINUM: The cardiomediastinal silhouette is unremarkable. BONES AND SOFT TISSUES: There are degenerative changes in the thoracic spine. Soft tissues are unremarkable. UPPER ABDOMEN: No free air under the diaphragm. IMPRESSION: No acute thoracic abnormality. Signed by: Dr. Wilfredo Nelson M.D. on 2017 9:40 PM Dictated By: WILFREDO SORENSON MD 39 Transcribed By: BOONE on 2139 COPY TO: KATIE BOWEN MD
== END 2018-02-05 13:30 | disposition home or self-care (01) | DRG 809 ==
LOC: ER 19:49 → ERHOLD 21:58 → MED/SURG 22:26
PROVIDERS: ADMIT Internal Medicine; ATTEND Internal Medicine
PROC: 30233N1 Transfusion of Nonautologous Red Blood Cells into Peripheral Vein, Percutaneous Approach (ICD-10-PCS; principal; 2018-01-30)
DX: D59.9 Acquired hemolytic anemia, unspecified (principal); N39.0 Urinary tract infection, site not specified; D50.9 Iron deficiency anemia, unspecified; R09.02 Hypoxemia; E11.9 Type 2 diabetes mellitus without complications; Z79.4 Long term (current) use of insulin; R00.0 Tachycardia, unspecified; R94.5 Abnormal results of liver function studies
CPT/HCPCS: 36415; 36430; 71045; 74177; 80051; 80053; 80061; 81001; 82085; 82175; 82270; 82300; 82550; 82553; 82565; 82570; 82607; 82728; 82746; 82948; 83010; 83540; 83615; 83655; 83825; 84443; 84466; 84484; 84520; 85025; 85045; 85610; 85730; 86850; 86870; 86880; 86900; 86905; 86920; 86922; 93005; 96372; 99001; 99284; J1100; J1200; J1940; J2930; J3420; J7030; J7050; P9016; Q9967

== ENCOUNTER 2018-10-30 15:41 | Inpatient (IN) | payer BC ==
[~2018-10-30] VITALS: Ht 182.9 cm; Wt 69.9 kg
[~2018-10-30 15:41] MED LIST: DANAZOL200 MG PO; FAMOTIDINE20 MG PO; PREDNISONE20 MG PO
--- OUTSIDE RECORDS SUMMARY | 2018-10-30 15:44 | XMS REPORT | Encounter Summary ---
Author Organization Unknown Address [address] [place] [id number] Phone [phone] Reason for Visit Medical Complaint Instructions 1. Acute upper respiratory infection upper respiratory infection (cold): care instructions benzonatate 200 mg capsule fluticasone 50 mcg/actuation nasal spray,suspension rapid flu (A+B) 2. Elevated blood pressure elevated blood pressure: care instructions dash diet: care instructions blood pressure monitoring education 3. Body mass index 25-29 - overweight learning about healthy weight Discussion Note: None recorded. Plan of Care Patient Instructions An upper respiratory infection, or URI, is an infection of the nose, sinuses, or throat. URIs are spread by coughs, sneezes, and direct contact. The common cold is the most frequent kind of URI. The flu and sinus infections are other kinds of URIs. Almost all URIs are caused by viruses. Antibiotics won't cure them. But you can treat most infections with home care. This may include drinking lots of fluids and taking raqx-prb-orqsidf pain medicine. You will probably feel better in 4 to 10 days. The doctor has checked you carefully, but problems can develop later. If you notice any problems or new symptoms, get medical treatment right away. Follow-up care is a ortiz part of your treatment and safety. Be sure to make and go to all appointments, and call your doctor if you are having problems. It's also a good idea to know your test results and keep a list of the medicines you take. How can you care for yourself at home? To prevent dehydration, drink plenty of fluids, enough so that your urine is light yellow or clear like water. Choose water and other caffeine-free clear liquids until you feel better. If you have kidney, heart, or liver disease and have to limit fluids, talk with your doctor before you increase the amount of fluids you drink. Take an pbzy-hye-rqmypxt pain medicine, such as acetaminophen (Tylenol), ibuprofen (Advil, Motrin), or naproxen (Aleve). Read and follow all instructions on the label. Before you use cough and cold medicines, check the label. These medicines may not be safe for young children or for people with certain health problems. Be careful when taking ybns-gin-jctvrmf cold or flu medicines and Tylenol at the same time. Many of these medicines have acetaminophen, which is Tylenol. Read the labels to make sure that you are not taking more than the recommended dose. Too much acetaminophen (Tylenol) can be harmful. Get plenty of rest. Do not smoke or allow others to smoke around you. If you need help quitting, talk to your doctor about stop-smoking programs and medicines. These can increase your chances of quitting for good. When should you call for help? Call 911 anytime you think you may need emergency care. For example, call if: You have severe trouble breathing. Call your doctor now or seek immediate medical care if: You seem to be getting much sicker. You have new or worse trouble breathing. You have a new or higher fever. You have a new rash. Watch closely for changes in your health, and be sure to contact your doctor if: You have a new symptom, such as a sore throat, an earache, or sinus pain. You cough more deeply or more often, especially if you notice more mucus or a change in the color of your mucus. You do not get better as expected. Reminders Provider Appointments None recorded. Lab Rapid Flu (A+B) 07/22/2018 [facility] Referral None recorded. Procedures None recorded. Surgeries None recorded. Imaging None recorded. Medications Name Start Date benzonatate 200 mg capsule Take 1 capsule 3 times a day by oral route for 10 days. fluticasone 50 mcg/actuation nasal spray,suspension Silva 1 spray every day by intranasal route. prednisone Medications Administered None recorded. Vitals Height Weight BMI Blood Pressure 5 ft 5 in 155 lbs 25.8 kg/m2 (1) 132/82 mm[Hg] (2) 130/88 mm[Hg] Lab Results Date Name Specimen Result Interpretation Description Value Range Status Address Rapid Flu (A+B) Influenza a negative [facility]: [address] [place] [address] Influenza B negative [facility]: [address] [place] [address] Allergies Code Code System Name Reaction Severity Status Onset NKDA Problems No Known Problems Procedures None recorded. Vaccine List None recorded. Social History None recorded. Past Encounters 07/22/2018 Acute Upper Respiratory Infection; Elevated Blood Pressure; Body Mass Index 25- 29 - Overweight Amaris Montes [facility]: [address] [facility], [place] [address], Ph. History of Present Illness Ofnzj-Xlxobyyuzy-Lvyfsxu Reported By: Patient HPI: Location: head/sinuses, chest. Quality: productive cough, nasal/sinus congestion. Duration: 2days. Severity: moderate. Onset/Timing: gradual. Context: no sick contacts, no foreign travel, non-smoker. Modifying factors: OTC medication. Associated Symptoms: no sputum production, no shortness of breath, no wheezing, no change in number of pillows needed to sleep at night, no sweats, no significant weight gain, no significant weight loss, no sore throat, no vomiting, no diarrhea, no rash, no nausea, no fever, no muscle aches, morning cough, headache Review of Systems:ROS as noted in the HPI Review of Systems Basic Reported By: Patient Physical Exam Adult Basic, Adult Female Complete Reported By: Patient Constitutional: General Appearance: healthy-appearing, well-nourished, well-developed, overweight. Level of Distress: NAD. Ambulation: ambulating normally Psychiatric: Mental Status: active and alert. Orientation: to time, to place, to person Qvq-Ugxq-Qkzxv-Throat: Ears: no lesions on external ear, no outer ear tenderness, EACs clear, TMs clear. Hearing: no hearing loss. Nose: no lesions on external nose, nares patent, no septal deviation, nasal passages clear, no sinus tenderness, no nasal discharge. Lips, Teeth, and Gums: no mouth or lip ulcers, no bleeding gums, normal dentition. Oropharynx: moist mucous membranes, no erythema, no exudates, tonsils not enlarged Lungs: Respiratory effort: no dyspnea, no tachypnea, no use of accessory muscles, no intercostal retractions. Auscultation: breath sounds normal Cardiovascular: Heart Auscultation: RRR, no murmurs
--- OUTSIDE RECORDS SUMMARY | 2018-10-30 15:44 | XMS REPORT | Continuity of Care Document ---
Author Author [employer] [facility] Interface Address Unknown Phone Unavailable Problems Problem Status Onset Date Classification Date Reported Comments Source Body mass index 25-29 - overweight 07/22/2018 Diagnosis 07/22/2018 [facility] Elevated blood pressure 07/22/2018 Diagnosis 07/22/2018 [facility] Acute upper respiratory infection 07/22/2018 Diagnosis 07/22/2018 [facility] Medications Medication Details Route Status Patient Instructions Ordering Provider Order Date Source benzonatate 200 MG Oral Capsule benzonatate 200 mg capsule Take 1 capsule 3 times a day by oral route for 10 days. Active [facility] Fluticasone propionate 0.05 MG/ACTUAT Metered Dose Nasal [place] fluticasone 50 mcg/actuation nasal spray,suspension [place] 1 spray every day by intranasal route. Active [facility] prednisone prednisone Active [facility] Allergies, Adverse Reactions, Alerts Substance Category Reaction Severity Reaction type Status Date Reported Comments Source Immunizations Immunization Date Given Site Status Last Updated Comments Source Results Order Name Results Value Reference Range Date Interpretation Comments Source Influenza A negative 07/22/2018 [facility] Influenza B negative 07/22/2018 [facility] Vital Signs Vital Sign Value Date Comments Source Diastolic (mm Hg) 88 07/22/2018 [facility] Height 65 07/22/2018 [facility] Systolic (mm Hg) 130 07/22/2018 [facility] Weight 155 07/22/2018 [facility] Encounters Location Location Details Encounter Type Encounter Number Reason For Visit Attending Provider ADM Date DC Date Status Source [place] - [facility] - [id number] Montes, ESTELLE-C: [address] [place] [address], Ph. [id number] Amaris Montes 07/22/2018 [facility] Procedures Procedure Code Date Perfomer Comments Source
[2018-10-30 17:22] LABS: BASOPHILS % 0.1 % (0.0-1.0); HEMOGLOBIN 13.2 g/dL (12.0-16.0); LYMPHOCYTES # (AUTO) 2.7 (1.0-3.2); LYMPHOCYTES % 32.7 % (18.0-39.1); MEAN CORPUSCULAR HEMOGLOBIN 33.9 pg (28-32); MEAN CORPUSCULAR HGB CONC 36.7 g/dL (31-35); MEAN CORPUSCULAR VOLUME 92.5 fL (81-99); MONOCYTES # (AUTO) 0.6 (0.2-0.8); MONOCYTES % 7.1 % (4.4-11.3); NEUTROPHILS # (AUTO) 4.9 (2.1-6.9); NEUTROPHILS % 59.3 % (38.7-80.0); RED BLOOD COUNT 3.89 x10e6/uL (3.6-5.1); RED CELL DISTRIBUTION WIDTH 15.3 % (11.7-14.4)
[2018-10-30 17:31] LABS: INR 0.91; PARTIAL THROMBOPLASTIN TIME 28.9 seconds (23.8-35.5); PROTHROMBIN TIME 12.7 seconds (11.9-14.5)
[2018-10-30 17:32] LABS: PLATELET COUNT 12 x10e3/uL (140-360)
[2018-10-30 17:36] LABS: BILIRUBIN,URINE NEGATIVE (NEGATIVE); CLARITY,URINE CLEAR (CLEAR); COLOR,URINE YELLOW (YELLOW); KETONES,URINE NEGATIVE (NEGATIVE); LEUKOCYTE ESTERASE ,URINE NEGATIVE (NEGATIVE); NITRITE,URINE NEGATIVE (NEGATIVE); PROTEIN,URINE DIPSTICK NEGATIVE (NEGATIVE); URINE UROBILINOGEN 0.2 mg/dL (0.2 - 1)
[2018-10-30 17:43] LABS: ALANINE AMINOTRANSFERASE 38 IU/L (0-55); ALBUMIN 4.7 g/dL (3.5-5.0); ALBUMIN/GLOBULIN RATIO 1.5 (0.8-2.0); ALKALINE PHOSPHATASE 67 IU/L (40-150); ANION GAP 17.4 mmol/L (8-16); BLOOD UREA NITROGEN 13 mg/dL (7-26); BUN/CREATININE RATIO 18 (6-25); CALCIUM 10.4 mg/dL (8.4-10.2); CARBON DIOXIDE 22 mmol/L (22-29); CHLORIDE 98 mmol/L (98-107); CREATINE KINASE 51 IU/L (29-168); CREATININE, SERUM 0.74 mg/dL (0.57-1.11); EST GLOMERULAR FILTRATION RATE > 60 ML/MIN (60-); GLUCOSE 172 mg/dL (74-118); POTASSIUM 4.4 mmol/L (3.5-5.1); SODIUM 133 mmol/L (136-145)
[2018-10-30 17:46] LABS: BACTERIA,URINE FEW /HPF; WBC,URINE (MAN) 0-5 /HPF (0-5)
--- NOTE | 2018-10-30 18:22 | Diagnostic Imaging Report ---
A single frontal view of the chest. HISTORY: CHEST PAIN COMPARISON: Chest radiograph January 29, 2018 DISCUSSION: Portable technique, limits sensitivity of the exam. Tubes/Lines: None Lungs and pleura: The lungs are well inflated. No evidence of a consolidative pneumonia or pulmonary alveolar edema. No definite pleural effusion or pneumothorax is identified. Heart and mediastinum: The cardiomediastinal silhouette appears unremarkable. Bones and soft tissues: Moderate right convex curvature. IMPRESSION: 1. No acute radiographic abnormality. 2. No significant interval change. Signed by: Dr. Tirso Caceres D.O., M.M.M. on 10/30/2018 6:19 PM
[2018-10-30] MEDS: LACTATED RINGER'S 1,000 ML IV SCH ×2 (20:30→20:50)
[2018-10-30] MEDS ORDERED: ACETAMINOPHEN 325 MG TAB PO PRN (20:30)
[2018-10-30] MEDS ORDERED: ENALAPRILAT IV INJ 1.25 MG/ML VIAL IV PRN (20:30)
[2018-10-30] MEDS ORDERED: ONDANSETRON HCL INJ 2MG/ML 2ML 2 MG/ML VIAL IV PRN (20:30)
[2018-10-30] MEDS ORDERED: DIPHENHYDRAMINE HCL INJ 50 MG/ML VIAL IV PRN (20:30)
[2018-10-30] MEDS ORDERED: ZOLPIDEM TARTRATE 5 MG TAB PO PRN (20:30)
--- NOTE | 2018-10-31 00:09 | NUR ---
Assumed care of pt
--- NOTE | 2018-10-31 01:29 | NUR ---
Report to CARIE Welsh
[2018-10-31 05:08] LABS: BLOOD UREA NITROGEN 17 mg/dL (7-26); BUN/CREATININE RATIO 24 (6-25); CALCIUM 9.4 mg/dL (8.4-10.2); CARBON DIOXIDE 26 mmol/L (22-29); CHLORIDE 103 mmol/L (98-107); CREATININE, SERUM 0.71 mg/dL (0.57-1.11); EST GLOMERULAR FILTRATION RATE > 60 ML/MIN (60-); GLUCOSE 131 mg/dL (74-118); SODIUM 139 mmol/L (136-145)
[2018-10-31 05:38] LABS: BASOPHILS % 0.2 % (0.0-1.0); EOSINOPHILS # (AUTO) 0.1 (0.0-0.4); EOSINOPHILS % 1.4 % (0.0-6.0); HEMATOCRIT 31.2 % (34.2-44.1); HEMOGLOBIN 11.1 g/dL (12.0-16.0); LYMPHOCYTES # (AUTO) 3.1 (1.0-3.2); LYMPHOCYTES % 53.4 % (18.0-39.1); MEAN CORPUSCULAR HEMOGLOBIN 33.9 pg (28-32); MEAN CORPUSCULAR HGB CONC 35.6 g/dL (31-35); MEAN CORPUSCULAR VOLUME 95.4 fL (81-99); MONOCYTES # (AUTO) 0.6 (0.2-0.8); MONOCYTES % 10.5 % (4.4-11.3); NEUTROPHILS % 33.8 % (38.7-80.0); RED BLOOD COUNT 3.27 x10e6/uL (3.6-5.1); RED CELL DISTRIBUTION WIDTH 15.7 % (11.7-14.4)
[2018-10-31 05:52] LABS: PLATELET COUNT 8 x10e3/uL (140-360)
--- NOTE | 2018-10-31 07:00 | NUR ---
BEDSIDE SHIFT REPORT RECEIVED FROM ERICK Gauthier
[2018-10-31] MEDS ORDERED: IMMU GLOBULIN,GAMMA (IGG) 300 ML IV SCH (09:00)
[2018-10-31] MEDS: PREDNISONE 20 MG TAB PO SCH (09:27)
[2018-10-31] MEDS: FAMOTIDINE 20 MG TAB PO SCH (09:27)
--- NOTE | 2018-10-31 10:01 | NUR ---
DR. MORENO AT BEDSIDE EVALUATING PATIENT. PER HIS ORDERS. THE IgG 300 ML HE ORDERED IS TO RUN OVER 24 HR PERIOD. PHARMACY SENT A 200ML/100ML BOTTLES. WILL RUN AT 12.5ML/HR (0.289MG/KG/MIN)
[2018-10-31 12:24] LABS: ANISOCYTOSIS SLIGHT; PLATELET ESTIMATE MARKEDLY DECREASED; RBC MORPHOLOGY COMMENT NORMAL
[2018-10-31 12:25] LABS: PLATELET MORPHOLOGY COMMENT NORMAL
[2018-10-31 15:06] VITALS: BP 137/64
--- NOTE | 2018-10-31 15:10 | NUR ---
Recvd patient from ER. AAOx3, Denies any pain, No SOB, On Ig IV drip, not in any distress, keep monitoring, call light in reach
[2018-10-31 15:42] VITALS: BP 137/64
--- NOTE | 2018-10-31 18:48 | NUR ---
Dr Lundberg had rounds, new orders recvd, patient is on IV fluids and continuos Ig , resting in bed, not in distress
[2018-10-31] MEDS: SODIUM CHLORIDE 0.9% 1000ML 1,000 ML IV SCH (18:49)
[2018-10-31 20:09] VITALS: BP 146/97
[2018-11-01] VITALS (9 sets, daily range): BP systolic 127–151; BP diastolic 71–92
[2018-11-01 05:44] LABS: EOSINOPHILS # (AUTO) 0.1 (0.0-0.4); EOSINOPHILS % 1.5 % (0.0-6.0); HEMATOCRIT 29.5 % (34.2-44.1); HEMOGLOBIN 10.3 g/dL (12.0-16.0); LYMPHOCYTES # (AUTO) 2.7 (1.0-3.2); LYMPHOCYTES % 50.7 % (18.0-39.1); MEAN CORPUSCULAR HEMOGLOBIN 33.4 pg (28-32); MEAN CORPUSCULAR HGB CONC 34.9 g/dL (31-35); MEAN CORPUSCULAR VOLUME 95.8 fL (81-99); MONOCYTES # (AUTO) 0.6 (0.2-0.8); MONOCYTES % 11.5 % (4.4-11.3); NEUTROPHILS # (AUTO) 1.9 (2.1-6.9); NEUTROPHILS % 35.7 % (38.7-80.0); RED BLOOD COUNT 3.08 x10e6/uL (3.6-5.1); RED CELL DISTRIBUTION WIDTH 15.6 % (11.7-14.4)
[2018-11-01 05:52] LABS: PLATELET COUNT 7 x10e3/uL (140-360)
--- NOTE | 2018-11-01 06:03 | NUR ---
DR. Lundberg notified of platelet ct. Decreasing from 8 to 7 this morning. He stated "okay, that's alright".
[2018-11-01 06:04] LABS: ANION GAP 9.5 mmol/L (8-16); BLOOD UREA NITROGEN 15 mg/dL (7-26); BUN/CREATININE RATIO 21 (6-25); CALCIUM 9.3 mg/dL (8.4-10.2); CARBON DIOXIDE 27 mmol/L (22-29); CHLORIDE 106 mmol/L (98-107); CREATININE, SERUM 0.71 mg/dL (0.57-1.11); EST GLOMERULAR FILTRATION RATE > 60 ML/MIN (60-); GLUCOSE 125 mg/dL (74-118); POTASSIUM 4.5 mmol/L (3.5-5.1); SODIUM 138 mmol/L (136-145)
--- NOTE | 2018-11-01 06:27 | NUR ---
Patient sleeping in bed. Respirations are even and unlabored, no distress noted. Right IV Patent infusing NS and IG. HOB slightly elevated, bed low, wheels locked and call light within reach. at bedside.
[2018-11-01] MEDS: IMMU GLOBULIN,GAMMA (IGG) 300 ML IV SCH (07:21)
[2018-11-01] MEDS: SODIUM CHLORIDE 0.9% 1000ML 1,000 ML IV SCH ×2 (07:22→20:55)
[2018-11-01] MEDS: PREDNISONE 20 MG TAB PO SCH (08:37)
[2018-11-01] MEDS: FAMOTIDINE 20 MG TAB PO SCH (08:37)
--- NOTE | 2018-11-01 10:58 | NUR ---
Patient sitting up in chair, had shower, denies any pain no distress, Dr Lundberg had rounds
--- NOTE | 2018-11-01 16:26 | NUR ---
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 Labs and meds reviewed. 58yo F, who was admitted for anemia. Currrently on Prednisone and IVF. Visited pt in the room. Pt reported good appetite with >70% observed meal intake. Family was bringing foods and snacks from home. No complains of nausea or vomiting. Pt denied any chewing or swallowing difficulty. Pt reported her weight fluctuated between 150 160lbs within the last couple months due to medication effects. No physical sign of muscle or fat loss upon observation. Will continue to monitor and follow. Current Diet: regular diet Malnutrition Evaluation (11/01/2018) The patient does not meet criteria for a specified degree of malnutrition at this time. Will re-evaluate at follow-up as appropriate. Diet Education Needs Assessment: Diet education not indicated. Nutrition Care Level: low Signed: Katja Jasso, MS, RD, LD
--- NOTE | 2018-11-01 19:00 | NUR ---
received report from day nurse. patient is resting comfortably in bed. IV fluids are running. denies pain or discomfort. family member is by the bedside. respirations are even and unlabored. bed is in lowest position and call eckert is within reach. will continue to monitor patients care.
[2018-11-02] VITALS (8 sets, daily range): BP systolic 129–145; BP diastolic 60–89
[2018-11-02] MEDS: IMMU GLOBULIN,GAMMA (IGG) 300 ML IV SCH ×3 (00:56→17:24)
[2018-11-02 05:35] LABS: EOSINOPHILS # (AUTO) 0.1 (0.0-0.4); EOSINOPHILS % 1.6 % (0.0-6.0); HEMATOCRIT 27.9 % (34.2-44.1); HEMOGLOBIN 9.5 g/dL (12.0-16.0); LYMPHOCYTES # (AUTO) 2.3 (1.0-3.2); LYMPHOCYTES % 51.2 % (18.0-39.1); MEAN CORPUSCULAR HEMOGLOBIN 33.5 pg (28-32); MEAN CORPUSCULAR HGB CONC 34.1 g/dL (31-35); MEAN CORPUSCULAR VOLUME 98.2 fL (81-99); MONOCYTES # (AUTO) 0.5 (0.2-0.8); MONOCYTES % 10.8 % (4.4-11.3); NEUTROPHILS # (AUTO) 1.6 (2.1-6.9); NEUTROPHILS % 35.5 % (38.7-80.0); RED BLOOD COUNT 2.84 x10e6/uL (3.6-5.1); RED CELL DISTRIBUTION WIDTH 15.5 % (11.7-14.4)
[2018-11-02 05:53] LABS: ANION GAP 12.7 mmol/L (8-16); BLOOD UREA NITROGEN 12 mg/dL (7-26); BUN/CREATININE RATIO 16 (6-25); CALCIUM 8.7 mg/dL (8.4-10.2); CARBON DIOXIDE 22 mmol/L (22-29); CHLORIDE 104 mmol/L (98-107); CREATININE, SERUM 0.74 mg/dL (0.57-1.11); EST GLOMERULAR FILTRATION RATE > 60 ML/MIN (60-); GLUCOSE 202 mg/dL (74-118); POTASSIUM 3.7 mmol/L (3.5-5.1); SODIUM 135 mmol/L (136-145)
[2018-11-02 06:18] LABS: PLATELET COUNT 7 x10e3/uL (140-360)
--- NOTE | 2018-11-02 06:18 | NUR ---
lab called to report critical lab this morning. is already aware of patients low platelet count. Patient is currently receiving treatments to help restore platelet count. patient is also consultating with facility surgeon on possible procedures to help rectify current platelet count.
--- NOTE | 2018-11-02 06:55 | NUR ---
report given to day nurse. patient is resting in bed. bed is in lowest position and call eckert is within reach. will continue to monitor patient.
[2018-11-02] MEDS: FAMOTIDINE 20 MG TAB PO SCH (08:35)
[2018-11-02] MEDS: PREDNISONE 20 MG TAB PO SCH ×2 (08:35→11:49)
--- NOTE | 2018-11-02 11:50 | NUR ---
extra 30 mg prednisone given to make a total of 50mg for the day.
[2018-11-02] MEDS: SODIUM CHLORIDE 0.9% 1000ML 1,000 ML IV SCH ×2 (14:56→23:35)
[2018-11-02] MEDS: PANTOPRAZOLE SOD 40 MG TABEC PO SCH (16:35)
--- NOTE | 2018-11-02 17:32 | NUR ---
Patient transferred to unit from OBS. Patient is AAox3. Patient ambulates on her own. Lung howard clear to auscultation. Bowel sounds present x4. No edema noted. No c/o pain. IV fluids and IV Ig infusing at this time. Family at bedside. NO s/s of distress noted
--- NOTE | 2018-11-02 17:35 | NUR ---
patient transferred to [facility]urg. all personal belongings with patient. vitals stable with no distress at time of transfer.
[2018-11-02] MEDS ORDERED: ZOLPIDEM TARTRATE 10 MG TAB PO PRN (21:00)
[2018-11-03] VITALS (9 sets, daily range): BP systolic 134–170; BP diastolic 71–80
[2018-11-03 05:33] LABS: EOSINOPHILS # (AUTO) 0.1 (0.0-0.4); EOSINOPHILS % 1.2 % (0.0-6.0); HEMATOCRIT 26.7 % (34.2-44.1); HEMOGLOBIN 9.7 g/dL (12.0-16.0); LYMPHOCYTES # (AUTO) 2.7 (1.0-3.2); MEAN CORPUSCULAR HEMOGLOBIN 34.5 pg (28-32); MEAN CORPUSCULAR HGB CONC 36.3 g/dL (31-35); MONOCYTES # (AUTO) 0.5 (0.2-0.8); MONOCYTES % 8.8 % (4.4-11.3); NEUTROPHILS % 38.2 % (38.7-80.0); RED BLOOD COUNT 2.81 x10e6/uL (3.6-5.1); RED CELL DISTRIBUTION WIDTH 15.6 % (11.7-14.4)
[2018-11-03 05:42] LABS: PLATELET COUNT 5 x10e3/uL (140-360)
--- NOTE | 2018-11-03 06:20 | NUR ---
Paged Dr. leiva for low Platelet count result. Dr. Montoya assembler and tester electronics for Dr. leiva per briquette machine operator. Waiting for call back.
--- NOTE | 2018-11-03 07:00 | NUR ---
Rcvd patient in report this am. Patient is awake in bed at this time. No s/s of distress noted
[2018-11-03] MEDS: PREDNISONE 20 MG TAB PO SCH (07:48)
[2018-11-03] MEDS: FAMOTIDINE 20 MG TAB PO SCH (07:48)
[2018-11-03] MEDS: PANTOPRAZOLE SOD 40 MG TABEC PO SCH ×2 (07:48→16:17)
[2018-11-03] MEDS: IMMU GLOBULIN,GAMMA (IGG) 300 ML IV SCH (08:19)
--- NOTE | 2018-11-03 10:13 | NUR ---
Patient is AAOx3. Lung howard clear to auscultation. Bowel sounds present x4. No edema noted. Patient ambulates on her own. No c/o pain. No s/s of distress noted. Patient receiving her IGg IV as well as fluids. Right AC IV in place
[2018-11-03] MEDS ORDERED: PREDNISONE 20 MG TAB PO ONE (10:30)
[2018-11-03 10:45] LABS: BASOPHILS % 0.1 % (0.0-1.0); EOSINOPHILS % 0.1 % (0.0-6.0); HEMATOCRIT 29.2 % (34.2-44.1); HEMOGLOBIN 10.5 g/dL (12.0-16.0); LYMPHOCYTES # (AUTO) 1.3 (1.0-3.2); LYMPHOCYTES % 15.8 % (18.0-39.1); MEAN CORPUSCULAR VOLUME 94.5 fL (81-99); MONOCYTES # (AUTO) 0.3 (0.2-0.8); MONOCYTES % 3.1 % (4.4-11.3); NEUTROPHILS # (AUTO) 6.4 (2.1-6.9); NEUTROPHILS % 79.5 % (38.7-80.0); RED BLOOD COUNT 3.09 x10e6/uL (3.6-5.1); RED CELL DISTRIBUTION WIDTH 15.6 % (11.7-14.4)
[2018-11-03 10:51] LABS: PLATELET COUNT 5 x10e3/uL (140-360)
[2018-11-03] MEDS: SODIUM CHLORIDE 0.9% 1000ML 1,000 ML IV SCH ×2 (12:55→19:05)
[2018-11-03] MEDS ORDERED: SALINE 0.65% NAS SOLN 1 SPRAY BTL PRN (14:45)
[2018-11-04] VITALS (8 sets, daily range): BP systolic 121–162; BP diastolic 58–76
[2018-11-04] MEDS: IMMU GLOBULIN,GAMMA (IGG) 300 ML IV SCH ×2 (00:02→11:15)
[2018-11-04 06:01] LABS: BASOPHILS % 0.2 % (0.0-1.0); EOSINOPHILS % 0.2 % (0.0-6.0); HEMATOCRIT 26.1 % (34.2-44.1); HEMOGLOBIN 9.1 g/dL (12.0-16.0); LYMPHOCYTES # (AUTO) 2.9 (1.0-3.2); LYMPHOCYTES % 51.1 % (18.0-39.1); MEAN CORPUSCULAR HEMOGLOBIN 33.6 pg (28-32); MEAN CORPUSCULAR HGB CONC 34.9 g/dL (31-35); MEAN CORPUSCULAR VOLUME 96.3 fL (81-99); MONOCYTES # (AUTO) 0.5 (0.2-0.8); MONOCYTES % 8.5 % (4.4-11.3); NEUTROPHILS # (AUTO) 2.2 (2.1-6.9); NEUTROPHILS % 39.3 % (38.7-80.0); RED BLOOD COUNT 2.71 x10e6/uL (3.6-5.1); RED CELL DISTRIBUTION WIDTH 16.1 % (11.7-14.4)
[2018-11-04 06:30] LABS: PLATELET COUNT 6 x10e3/uL (140-360)
--- NOTE | 2018-11-04 06:33 | NUR ---
Low Platelet count noted from the lab. Paged Dr. leiva. Waiting for reply.
--- NOTE | 2018-11-04 07:22 | NUR ---
Rcvd patient in report this am. Patient is awake in bed at this time. No s/s of distress noted. IV IG continues to infuse
[2018-11-04] MEDS: FAMOTIDINE 20 MG TAB PO SCH (07:45)
[2018-11-04] MEDS: PANTOPRAZOLE SOD 40 MG TABEC PO SCH ×2 (07:45→16:23)
[2018-11-04] MEDS: SODIUM CHLORIDE 0.9% 1000ML 1,000 ML IV SCH (07:45)
[2018-11-04] MEDS: PREDNISONE 20 MG TAB PO SCH (07:45)
--- NOTE | 2018-11-04 10:46 | NUR ---
Patient is AAOx3. Lung howard clear to auscultation. Bowel sounds present x4. No edema noted. Patient ambulating on her own. No c/o pain. No bleeding noted.
[2018-11-05] MEDS: IMMU GLOBULIN,GAMMA (IGG) 300 ML IV SCH ×2 (01:35→07:21)
[2018-11-05 04:21] VITALS: BP 147/72
[2018-11-05] MEDS: SODIUM CHLORIDE 0.9% 1000ML 1,000 ML IV SCH ×2 (04:55→18:15)
[2018-11-05 05:58] LABS: EOSINOPHILS % 0.4 % (0.0-6.0); HEMOGLOBIN 8.6 g/dL (12.0-16.0); LYMPHOCYTES % 58.2 % (18.0-39.1); MEAN CORPUSCULAR HEMOGLOBIN 33.9 pg (28-32); MEAN CORPUSCULAR HGB CONC 34.4 g/dL (31-35); MEAN CORPUSCULAR VOLUME 98.4 fL (81-99); MONOCYTES # (AUTO) 0.5 (0.2-0.8); MONOCYTES % 9.6 % (4.4-11.3); NEUTROPHILS # (AUTO) 1.6 (2.1-6.9); RED BLOOD COUNT 2.54 x10e6/uL (3.6-5.1); RED CELL DISTRIBUTION WIDTH 16.3 % (11.7-14.4)
[2018-11-05 06:07] LABS: PLATELET COUNT 6 x10e3/uL (140-360)
--- NOTE | 2018-11-05 06:32 | NUR ---
Low Platelet count noted from the lab. Paged Dr. Lundberg. Waiting for response
--- NOTE | 2018-11-05 06:41 | NUR ---
Call back received from Dr. Lundberg and made aware of platelet count result. No new orders.
[2018-11-05 07:53] VITALS: BP 145/78
[2018-11-05] MEDS: PREDNISONE 20 MG TAB PO SCH (09:24)
[2018-11-05] MEDS: PANTOPRAZOLE SOD 40 MG TABEC PO SCH ×2 (09:24→17:00)
[2018-11-05] MEDS: FAMOTIDINE 20 MG TAB PO SCH (09:24)
[2018-11-05] MEDS: METHYLPREDNISOLONE SOD SUCC 125 MG/2ML VIAL IV SCH ×2 (10:22→21:10)
[2018-11-05] MEDS ORDERED: SODIUM CHLORIDE 0.9% 1000ML 1,000 ML ONE (10:40)
[2018-11-05 11:46] VITALS: BP 150/72
[2018-11-05] MEDS ORDERED: SODIUM CHLORIDE 0.9% 250ML 250 ML IV ONE ×2 (13:30→20:30)
[2018-11-05 14:22] LABS: FREE T4 (FREE THYROXINE) 0.97 ng/dL (0.9-1.8); THYROID STIMULATING HORMONE 0.914 uIU/mL (0.350-4.940)
[2018-11-05 16:02] VITALS: BP 163/78
[2018-11-05] MEDS: INSULIN LISPRO 100 UNIT/1 ML 3ML VIAL SQ SCH ×2 (16:30→21:35)
--- NOTE | 2018-11-05 16:30 | NUR ---
pt blood sugar was 226. per sliding scale, 4 units of lispro administered.
--- NOTE | 2018-11-05 19:25 | NUR ---
PATIENT RECEIVED. PATIENT IS RESTING IN BED, AAOX3. RESP EVEN AND UNLABORED. NO ACUTE DISTRESS NOTED. FAMILY AT BED SIDE. CALL LIGHT WITHIN REACH. BED LOW/LOCKED. CONTINUE TO MONITOR CLOSELY
[2018-11-05 20:00] VITALS: BP 158/78
[2018-11-05] MEDS ORDERED: FUROSEMIDE INJ 10 MG/ML 2 ML VIAL IV ONE (20:30)
--- NOTE | 2018-11-05 21:30 | NUR ---
RECEIVED ORDER FROM DR NUNEZ FOR BLOOD AND PLATELET TRANSFUSION. NOTIFIED LAB. AWAITING FOR BLOOD TO BE READY
[2018-11-05] MEDS: INSULIN GLARGINE 100 UNITS/ML VIAL SQ SCH (21:35)
--- NOTE | 2018-11-05 21:44 | Consultation ---
DATE OF CONSULTATION: 11/05/2018 Endocrine Consultation This is a patient of Dr. Lundberg. Thank you very much for referring this patient. HISTORY OF PRESENT ILLNESS: This is a 58-year-old white female who was referred to me for evaluation of acute hyperglycemia related to steroids. The patient is a known case of hemolytic anemia. She was admitted to the hospital about six months back. At that time, she was also on steroids. At this time, the patient was brought to the hospital because of a very low platelet count. She has a diagnosis of Weinberg syndrome. The patient has been started on Solu-Medrol 150 mg q.12 hours and her blood sugars are elevated. She does not have any diabetes in the past. She does have family history of diabetes and also she had big babies. No history of any other major medical problems in the past. She is complaining of tiredness. PHYSICAL EXAMINATION: GENERAL: Today, the patient is alert, awake, little bit apprehensive. VITAL SIGNS: Her heart rate is around 78, blood pressure 130/80 mmHg. HEENT: Essentially unremarkable. Thyroid is palpable. Clinically, she is euthyroid. CHEST: Bilateral vesicular breathing. Mild bronchospasm. CARDIAC: First and second heart sounds. There is no 3rd or 4th heart sounds . EXTREMITIES: The patient has evidence of mild pedal edema. LABORATORY DATA: The blood sugars have been in the ranges of 150-250 range. IMPRESSION: Weinberg syndrome, hemolytic anemia, and significantly low platelet count. Acute hyperglycemia related to steroids. PLAN: The plan at this time is to do hemoglobin A1c, thyroid function test and put on the insulin to cover for now. Thank you for referring this patient. I will be following this patient with you MD TERA Reyes/REYNALDO /[id number]
[2018-11-05 23:33] VITALS: BP 141/78
--- NOTE | 2018-11-05 23:40 | NUR ---
START NEW IV 20G TO RIGHT FOREARM. PATIENT TOLERATED WELL. OBTAINED CONSENT FORM FOR BLOOD TRANSFUSION.
[2018-11-06] VITALS (8 sets, daily range): BP systolic 127–158; BP diastolic 66–78
--- NOTE | 2018-11-06 03:50 | NUR ---
CHECKED WITH LAB IF BLOOD IS READY. LAB SAID BLOOD IS ORDERED FROM OUTSIDE DUE TO ANTIBODY. LAB WILL NOTIFY NURSE IF BLOOD IS READY
[2018-11-06 06:19] LABS: BASOPHILS % 0.2 % (0.0-1.0); HEMATOCRIT 26.5 % (34.2-44.1); HEMOGLOBIN 9.6 g/dL (12.0-16.0); LYMPHOCYTES # (AUTO) 1.3 (1.0-3.2); LYMPHOCYTES % 20.5 % (18.0-39.1); MEAN CORPUSCULAR HEMOGLOBIN 34.8 pg (28-32); MEAN CORPUSCULAR HGB CONC 36.2 g/dL (31-35); MONOCYTES # (AUTO) 0.2 (0.2-0.8); MONOCYTES % 2.8 % (4.4-11.3); NEUTROPHILS # (AUTO) 4.8 (2.1-6.9); NEUTROPHILS % 75.4 % (38.7-80.0); RED BLOOD COUNT 2.76 x10e6/uL (3.6-5.1); RED CELL DISTRIBUTION WIDTH 16.3 % (11.7-14.4)
[2018-11-06 06:20] LABS: PLATELET COUNT 5 x10e3/uL (140-360)
[2018-11-06] MEDS: INSULIN LISPRO 100 UNIT/1 ML 3ML VIAL SQ SCH ×4 (07:30→20:55)
[2018-11-06] MEDS: PANTOPRAZOLE SOD 40 MG TABEC PO SCH ×2 (07:30→16:30)
[2018-11-06] MEDS: SODIUM CHLORIDE 0.9% 1000ML 1,000 ML IV SCH (07:35)
--- NOTE | 2018-11-06 07:40 | NUR ---
Received patient this morning, a/ox3, IGG running at ordered rate, no resp distress, will monitor as call light within reach and bed in low locked position
[2018-11-06] MEDS: IMMU GLOBULIN,GAMMA (IGG) 300 ML IV SCH (08:06)
[2018-11-06] MEDS: METHYLPREDNISOLONE SOD SUCC 125 MG/2ML VIAL IV SCH ×2 (08:07→20:55)
[2018-11-06] MEDS: FAMOTIDINE 20 MG TAB PO SCH (08:08)
--- NOTE | 2018-11-06 09:24 | NUR ---
Rounds by lathe puller, called lab and spoke with Debra and informed PRBC will no longer be administered and just the platelets. Order in place to d/c PRBC, rounds and saw patient and informed patient the same decision by
[2018-11-06] MEDS: CLONIDINE HCL 0.1 MG TAB PO PRN (11:13)
[2018-11-06] MEDS ORDERED: SODIUM CHLORIDE 0.9% 250ML 250 ML ONE (11:42)
--- NOTE | 2018-11-06 12:25 | NUR ---
Patient started on platelet transfusion at this time, VSS and no resp distress, no reaction noted and will monitor
--- NOTE | 2018-11-06 13:51 | NUR ---
Completed first unit of platelet at this time, no major reaction noted
--- NOTE | 2018-11-06 18:00 | NUR ---
Call to Dr. Gama to report Platelet level and left message.
[2018-11-06] MEDS: INSULIN GLARGINE 100 UNITS/ML VIAL SQ SCH (20:58)
[2018-11-07] VITALS (8 sets, daily range): BP systolic 153–171; BP diastolic 70–83
[2018-11-07] MEDS: SODIUM CHLORIDE 0.9% 1000ML 1,000 ML IV SCH ×3 (01:11→23:54)
[2018-11-07] MEDS: IMMU GLOBULIN,GAMMA (IGG) 300 ML IV SCH (04:35)
[2018-11-07 05:33] LABS: BASOPHILS % 0.2 % (0.0-1.0); HEMATOCRIT 25.7 % (34.2-44.1); HEMOGLOBIN 9.1 g/dL (12.0-16.0); LYMPHOCYTES # (AUTO) 1.3 (1.0-3.2); LYMPHOCYTES % 20.7 % (18.0-39.1); MEAN CORPUSCULAR HEMOGLOBIN 35.1 pg (28-32); MEAN CORPUSCULAR HGB CONC 35.4 g/dL (31-35); MEAN CORPUSCULAR VOLUME 99.2 fL (81-99); MONOCYTES # (AUTO) 0.3 (0.2-0.8); NEUTROPHILS # (AUTO) 4.4 (2.1-6.9); NEUTROPHILS % 72.9 % (38.7-80.0); PLATELET COUNT 70 x10e3/uL (140-360); RED BLOOD COUNT 2.59 x10e6/uL (3.6-5.1); RED CELL DISTRIBUTION WIDTH 16.9 % (11.7-14.4)
[2018-11-07 05:54] LABS: ANION GAP 9.6 mmol/L (8-16); BLOOD UREA NITROGEN 16 mg/dL (7-26); BUN/CREATININE RATIO 21 (6-25); CALCIUM 9.3 mg/dL (8.4-10.2); CARBON DIOXIDE 23 mmol/L (22-29); CHLORIDE 102 mmol/L (98-107); CREATININE, SERUM 0.76 mg/dL (0.57-1.11); EST GLOMERULAR FILTRATION RATE > 60 ML/MIN (60-); GLUCOSE 179 mg/dL (74-118); POTASSIUM 3.6 mmol/L (3.5-5.1); SODIUM 131 mmol/L (136-145)
--- NOTE | 2018-11-07 07:27 | NUR ---
Rcvd patient in report this am. patient is awake in bed at this time. No s/s of distress noted.
[2018-11-07] MEDS ORDERED: IMMU GLOBULIN,GAMMA (IGG) 600 ML IV ONE (07:30)
[2018-11-07] MEDS: METHYLPREDNISOLONE SOD SUCC 125 MG/2ML VIAL IV SCH ×2 (08:00→20:57)
[2018-11-07] MEDS: FAMOTIDINE 20 MG TAB PO SCH (08:00)
[2018-11-07] MEDS: PANTOPRAZOLE SOD 40 MG TABEC PO SCH ×2 (08:00→16:19)
[2018-11-07] MEDS: INSULIN LISPRO 100 UNIT/1 ML 3ML VIAL SQ SCH ×4 (08:14→20:57)
--- NOTE | 2018-11-07 11:46 | NUR ---
Patient signed consent form for splenectomy tomorrow and orders in place by Dr. Phillips during rounds this morning
[2018-11-07] MEDS ORDERED: ONDANSETRON HCL 4 MG ORAL DISINTEGRATING TAB PO PRN (12:45)
--- NOTE | 2018-11-07 19:12 | NUR ---
received patient aaox3, stable condition. no needs voiced at this time. bed locked and in lowest position, call light within reach.
[2018-11-07] MEDS: CLONIDINE HCL 0.1 MG TAB PO PRN (20:58)
[2018-11-07] MEDS: INSULIN GLARGINE 100 UNITS/ML VIAL SQ SCH (20:58)
--- NOTE | 2018-11-07 23:56 | NUR ---
report given to oncoming nurse for continuity of care
[2018-11-08] VITALS (8 sets, daily range): BP systolic 138–165; BP diastolic 72–80
[2018-11-08 05:43] LABS: HEMOGLOBIN 8.7 g/dL (12.0-16.0); LYMPHOCYTES # (AUTO) 1.2 (1.0-3.2); MEAN CORPUSCULAR HEMOGLOBIN 35.1 pg (28-32); MEAN CORPUSCULAR HGB CONC 36.3 g/dL (31-35); MEAN CORPUSCULAR VOLUME 96.8 fL (81-99); MONOCYTES # (AUTO) 0.3 (0.2-0.8); NEUTROPHILS % 71.7 % (38.7-80.0); PLATELET COUNT 54 x10e3/uL (140-360); RED BLOOD COUNT 2.48 x10e6/uL (3.6-5.1); RED CELL DISTRIBUTION WIDTH 16.5 % (11.7-14.4)
--- NOTE | 2018-11-08 07:14 | NUR ---
pt sitting upright in bed resp even and unlabored at this time no distress noted, pt talking with her family member at this time, able to make needs known, pt has no c/o pain when asked. call light in reach.
[2018-11-08] MEDS: INSULIN LISPRO 100 UNIT/1 ML 3ML VIAL SQ SCH ×2 (07:30→11:30)
[2018-11-08] MEDS: PANTOPRAZOLE SOD 40 MG TABEC PO SCH (07:30)
[2018-11-08] MEDS ORDERED: HEPARIN SOD/SOD CHLORIDE 1,000 ML ONE (08:17)
[2018-11-08] MEDS: METHYLPREDNISOLONE SOD SUCC 125 MG/2ML VIAL IV SCH ×2 (09:00→22:05)
[2018-11-08] MEDS: FAMOTIDINE 20 MG TAB PO SCH (09:00)
--- NOTE | 2018-11-08 10:38 | History and Physical ---
HISTORY OF PRESENT ILLNESS: Elba Allen is a 58-year-old female, who presented to a conference with her family for a platelet count of 17,000. 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 More than half an hour conference with the patient's family, [id number] at office with the , the son, and the daughter over the phone was carried out. Subsequently, I had called the admissions. I was directed to the nursing commissary production supervisor for a direct admit. Subsequently, I was told by the nursing commissary production supervisor that day there were no beds. Subsequently, I had called the emergency room, spoke to Dr. Hernandez at the emergency room regarding the treatment plan for the patient. Subsequently, I had also called the Pharmacy to make sure that we did have IVIG in reserve. I was told by the Pharmacy that we did have IVIG, I stressed on 30 g a day as continuous infusion or a minimum of five days. I was reassured that the hospital does have IVIG. Subsequently, I had consulted Dr. Alan Perez, whom I had called personally that once the platelets come to 75,000 to 100,000, the patient will have a splenectomy, subsequently admitted for treatment of Weinberg Syndrome. SOCIAL HISTORY: Noncontributory. FAMILY HISTORY: Noncontributory. ALLERGIES: NONE. MEDICATIONS: At this time: 1. Zyrtec. 2. Hair vitamins. 3. Prednisone 5 mg every third day. PAST SURGICAL HISTORY: None. FAMILY HISTORY: Father alive at 81. Mother alive at 78. Two brothers are healthy. REVIEW OF SYSTEMS: HEENT: Normal. CARDIAC: Normal. RESPIRATORY: Normal. GI: Normal. : Normal. MUSCULOSKELETAL: Normal. SKIN AND BREASTS: Normal. NEUROENDOCRINE: Normal. HEMATOLOGIC: The patient was diagnosed as Fozia positive hemolytic anemia with a hemoglobin of less than 4 g a few months back and treated with prednisone and Danocrine and the patient had achieved a complete remission; however, relapses with thrombocytopenia. PHYSICAL EXAMINATION: GENERAL: Moderately built female. No palpable adenopathy. HEART: Within normal limits. LUNGS: Clear. ABDOMEN: Soft. RECTAL AND VAGINAL: Deferred. BREASTS: Deferred. CENTRAL NERVOUS SYSTEM: Essentially normal. EXTREMITIES: Essentially normal. IMPRESSION: 1. History of Fozia positive with hemolytic anemia. 2. ITP. 3. Weinberg syndrome. PLAN: Plan is to have IVIG. Prednisone will be increased. A very close watch will be kept on the patient's BUN, creatinine, and electrolytes daily. Once the platelets are up to 75,000 to 100,000 or even 50,000, the patient will have splenectomy and this was discussed with the nursing commissary production supervisor on the day of sending her to the ER and also Dr. Hernandez, has sent my eMAR as well as orders in an envelope to be given personally to Dr. Hernandez, whom I have spoken personally. MD KATHERINE Tamez/REYNALDO /[id number]
--- NOTE | 2018-11-08 12:50 | NUR ---
PT OFF UNIT FOR PROCEDURE.
[2018-11-08] MEDS: SODIUM CHLORIDE 0.9% 1000ML 1,000 ML IV SCH ×2 (12:55→17:21)
--- NOTE | 2018-11-08 12:56 | NUR ---
Patient went to OR at this time
[2018-11-08] MEDS ORDERED: SODIUM CHLORIDE 0.9% 250ML 250 ML IV ONE (13:30)
[2018-11-08] MEDS ORDERED: BUPIVACAINE 0.25%/EPI 30ML SDV INJ ONE (14:16)
[2018-11-08] MEDS ORDERED: ACETAMINOPHEN 1000 MG/100 ML 100 ML IV ONE (14:34)
[2018-11-08] MEDS ORDERED: IMMU GLOBULIN,GAMMA (IGG) 300 ML IV SCH (15:00)
[2018-11-08] MEDS ORDERED: SODIUM CHLORIDE 0.9% 250ML IRRIG IR SCH (15:15)
[2018-11-08] MEDS ORDERED: ACETAMINOPHEN 1000 MG/100 ML IV PRN (15:15)
[2018-11-08] MEDS: PANTOPRAZOLE 40 MG 10ML VIAL IV SCH (15:15)
[2018-11-08] MEDS ORDERED: HYDROMORPHONE 1MG/1ML INJ IV PRN (15:15)
[2018-11-08] MEDS ORDERED: ACETAMINOPHEN 1000 MG/100 ML 100 ML IV PRN (15:45)
--- NOTE | 2018-11-08 16:00 | NUR ---
PT RETURN TO UNIT, VIA BED RESP EVEN AND UNLABORED AT THIS TIME NO DISTRESS NOTED , NO C/O PAIN WHEN ASKED, PT HAS 4 ABDOMEN TROCAR SITES CLEAN AND INTACT, 02 PER PROTOCOL, 2L, PT DUE TO VOID BETWEEN 2100 AND 2300, CALL LIGHT IN REACH FAMILY MEMBERS AT BEDSIDE.
--- NOTE | 2018-11-08 16:16 | NUR ---
Attempted to follow up. Pt was gone for surgery. RD will revisit in the AM.
--- NOTE | 2018-11-08 16:20 | NUR ---
PT IMMUNE.GLOBULIN STARTED AT THIS TIME, PT TOLERATING WELL.
[2018-11-08] MEDS: IMMU GLOBULIN,GAMMA (IGG) 600 ML IV SCH (16:43)
[2018-11-08] MEDS: INSULIN REGULAR, HUMAN 100 UNIT/1 ML 3ML VIAL SQ SCH (17:05)
[2018-11-08] MEDS ORDERED: SEVOFLURANE INHAL SOLN 250 ML PEN BTL ONE (18:29)
[2018-11-08] MEDS ORDERED: NEOSTIGMINE 5 MG/5ML SYR ONE (18:29)
[2018-11-08] MEDS ORDERED: GLYCOPYRROLATE INJ 1MG/ 5 ML SYR ONE (18:29)
[2018-11-08] MEDS ORDERED: ONDANSETRON HCL INJ 2MG/ML 2ML 2 MG/ML VIAL ONE (18:29)
[2018-11-08] MEDS ORDERED: PROPOFOL IV EMULSION 10 MG/ML 20 ML VIAL ONE (18:29)
[2018-11-08] MEDS ORDERED: ACETAMINOPHEN 1000 MG/100 ML IV ONE (18:29)
[2018-11-08] MEDS ORDERED: DEXAMETHASONE SOD PHOS INJ 4 MG/ML VIAL ONE (18:29)
[2018-11-08] MEDS ORDERED: EPHEDRINE SULFATE INJ 50 MG/10 ML SYR ONE (18:29)
[2018-11-08] MEDS ORDERED: LIDOCAINE HCL 2% LOCAL INJ 5 ML SDV VIAL INJ ONE (18:29)
[2018-11-08] MEDS ORDERED: ROCURONIUM BROMIDE 10 MG/ML 5ML VIAL ONE (18:29)
[2018-11-08] MEDS ORDERED: FENTANYL CITRATE/PF 100MCG/2 ML INJ ONE (18:44)
[2018-11-08] MEDS ORDERED: MIDAZOLAM HCL 2 MG/2 ML VIAL ONE (18:44)
--- NOTE | 2018-11-08 19:28 | NUR ---
REPORT GIVEN TO ONCOMING NURSE. FOR CONTINUED CARE.
--- NOTE | 2018-11-08 19:45 | NUR ---
REPORT GIVEN TO ONCOMING NURSE. FOR CONTINUED CARE.
--- NOTE | 2018-11-08 20:35 | Operative Report ---
DATE OF PROCEDURE: 11/08/2018 SURGEON: Alan Perez MD PREOPERATIVE DIAGNOSIS: Immune thrombocytopenic purpura. POSTOPERATIVE DIAGNOSIS: Immune thrombocytopenic purpura. OPERATION PERFORMED: Laparoscopic splenectomy. ASSISTANTS: Dr. Huy Perez and PIYUSH Gonzalez. ANESTHESIA: General. COMPLICATIONS: None. ESTIMATED BLOOD LOSS: 50 mL. DESCRIPTION OF PROCEDURE: With the patient lying in bed in the supine position under good general endotracheal anesthesia, the abdomen was prepped with Betadine solution and draped in the usual manner. A Veress needle was introduced into the left mid abdomen and pneumoperitoneum was established without any difficulty. An 11-mm trocar was placed into the left mid abdomen and a 10-mm videolaparoscope was placed into the intra-abdominal cavity. Under direct vision, a 12-mm trocar was placed in the left anterior axillary line and a 5-mm trocar was placed in the epigastric region and another 5-mm trocar was placed in the right upper abdomen. Video laparoscopy at this point revealed couple of adhesions to the right mid abdomen, which were taken down without any difficulty. The stomach and liver appeared to be within normal limits. The spleen was larger than normal in size. The rest of the abdominal exploration was otherwise within normal limits. Using the energy device, the lower pole of the spleen was freed up first from the splenocolic ligament and the splenic flexure of the colon was brought down and from the spleen. The posterior attachment of the spleen was then slowly and carefully taken down without any difficulty. The short gastric vessels were then taken down anteriorly and this freed up the splenic pedicle, which could then be usually visualized all the way around. A vascular stapler was then introduced and the splenic pedicle was then divided with an application of the vascular stapler and the spleen became totally detached. At this point, there was absolutely no bleeding from the splenic bed whatsoever. Once this was done, the spleen was placed into a large bag and brought out in pieces through the bag without any difficulty. Video laparoscopy was then again carried out. The whole area was thoroughly irrigated. Perfect hemostasis was ascertained. All the excess fluid was aspirated. The pneumoperitoneum was evacuated and all the trocars were removed under direct vision. The fascia of the 12-mm trocars were then closed with a [id number] of #0 Vicryl. All layers were infiltrated on the way out with solution of 0.25% Marcaine. Subcutaneous tissue was approximated with 3-0 Vicryl, and the skin was closed with subcuticular 5-0 Vicryl. Benzoin, Steri-Strips, and Band-Aids were applied. The sponge, lap, and needle count was correct. The patient tolerated the procedure well and returned to the recovery room in stable condition. MD OCTAVIANO Buchanan/REYNALDO /[id number]
[2018-11-08] MEDS: HYDROMORPHONE 2MG/ML 2 MG/ML ML IV PRN (22:05)
[2018-11-08] MEDS: CEFAZOLIN SOD 1 GM/NS 50ML 50 ML IV SCH (22:05)
[2018-11-09] VITALS (8 sets, daily range): BP systolic 116–150; BP diastolic 60–73
[2018-11-09] MEDS: SODIUM CHLORIDE 0.9% 1000ML 1,000 ML IV SCH ×2 (01:13→09:30)
[2018-11-09] MEDS: INSULIN REGULAR, HUMAN 100 UNIT/1 ML 3ML VIAL SQ SCH ×3 (01:44→13:13)
[2018-11-09] MEDS: HYDROMORPHONE 2MG/ML 2 MG/ML ML IV PRN ×4 (01:48→21:41)
[2018-11-09 06:20] LABS: LYMPHOCYTES # (AUTO) 1.3 (1.0-3.2); LYMPHOCYTES % 10.1 % (18.0-39.1); MEAN CORPUSCULAR HEMOGLOBIN 35.1 pg (28-32); MEAN CORPUSCULAR HGB CONC 36.2 g/dL (31-35); MEAN CORPUSCULAR VOLUME 96.9 fL (81-99); MONOCYTES # (AUTO) 0.6 (0.2-0.8); MONOCYTES % 4.8 % (4.4-11.3); NEUTROPHILS # (AUTO) 10.5 (2.1-6.9); NEUTROPHILS % 84.5 % (38.7-80.0); RED BLOOD COUNT 2.28 x10e6/uL (3.6-5.1); RED CELL DISTRIBUTION WIDTH 16.7 % (11.7-14.4)
[2018-11-09] MEDS: CEFAZOLIN SOD 1 GM/NS 50ML 50 ML IV SCH (06:22)
[2018-11-09 06:34] LABS: ANION GAP 9.2 mmol/L (8-16); BLOOD UREA NITROGEN 17 mg/dL (7-26); BUN/CREATININE RATIO 22 (6-25); CALCIUM 8.7 mg/dL (8.4-10.2); CARBON DIOXIDE 25 mmol/L (22-29); CHLORIDE 102 mmol/L (98-107); CREATININE, SERUM 0.76 mg/dL (0.57-1.11); EST GLOMERULAR FILTRATION RATE > 60 ML/MIN (60-); GLUCOSE 183 mg/dL (74-118); POTASSIUM 4.2 mmol/L (3.5-5.1); SODIUM 132 mmol/L (136-145)
[2018-11-09 06:46] LABS: HEMATOCRIT 22.1 % (34.2-44.1)
[2018-11-09 06:47] LABS: PLATELET COUNT 43 x10e3/uL (140-360)
[2018-11-09] MEDS ORDERED: SODIUM CHLORIDE 0.9% 250ML 250 ML IV ONE (07:30)
--- NOTE | 2018-11-09 07:34 | NUR ---
SPOKE WITH MD NUNEZ, MADE AWARE OF CURRENT LABS, ORDERS NOTED
[2018-11-09] MEDS ORDERED: SODIUM CHLORIDE 0.9% 250ML 250 ML ONE ×4 (08:24→17:16)
--- NOTE | 2018-11-09 08:59 | NUR ---
MD NUNEZ INTO SEE PT, DISCUSSED POC
[2018-11-09] MEDS: METHYLPREDNISOLONE SOD SUCC 125 MG/2ML VIAL IV SCH ×2 (09:00→21:39)
--- NOTE | 2018-11-09 10:30 | NUR ---
VISITING WITH FAMILY, VOICES NO NEEDS AT THIS TIME, CALL LIGHT WITHIN REACH
--- NOTE | 2018-11-09 11:30 | NUR ---
MEDICATED PER MD ORDER FOR 4/10 ABD PAIN, EDUCATED TO CALL FOR ASSISTANCE BEFORE GETTING OOB, VERBALIZED UNDERSTANDING, CALL LIGHT WITHIN REACH
--- NOTE | 2018-11-09 12:21 | NUR ---
NEW 20 G TO LEFT HAND BY CHARGE NURSE, PT TOLERATED WELL, SPOKE WITH MD NUNEZ, MADE AWARE THAT BLOOD IS READY, BUT PT DOES HAVE 99.2F ORAL TEMP, ORDERS NOTED
[2018-11-09] MEDS ORDERED: ACETAMINOPHEN 325 MG TAB PO NR (12:30)
[2018-11-09 12:47] LABS: HYPOCHROMASIA MODERATE; MICROCYTOSIS SLIGHT; PLATELET ESTIMATE MODERATELY DECREASED; PLATELET MORPHOLOGY COMMENT NORMAL; RBC MORPHOLOGY COMMENT NORMAL
[2018-11-09] MEDS: FUROSEMIDE INJ 10 MG/ML 2 ML VIAL IV PRN ×2 (13:30→17:53)
[2018-11-09] MEDS: PANTOPRAZOLE 40 MG 10ML VIAL IV SCH (15:15)
[2018-11-09] MEDS: IMMU GLOBULIN,GAMMA (IGG) 600 ML IV SCH (16:01)
--- NOTE | 2018-11-09 16:23 | NUR ---
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 POD 1. Visited pt in the room. Pt appeared well after surgery. No GI complains at this time. Diet has been advanced to clear liquid for dinner. Will continue to monitor and follow. (11/01) Chart reviewed. Labs and meds reviewed. 58yo F, who was admitted for anemia. Currrently on Prednisone and IVF. Visited pt in the room. Pt reported good appetite with >70% observed meal intake. Family was bringing foods and snacks from home. No complains of nausea or vomiting. Pt denied any chewing or swallowing difficulty. Pt reported her weight fluctuated between 150 160lbs within the last couple months due to medication effects. No physical sign of muscle or fat loss upon observation. Will continue to monitor and follow. Current Diet: Clear liquid Malnutrition Evaluation (11/01/2018) The patient does not meet criteria for a specified degree of malnutrition at this time. Will re-evaluate at follow-up as appropriate. Diet Education Needs Assessment: Diet education not indicated. Nutrition Care Level: low Signed: Katja Jasso, MS, RD, LD
[2018-11-09] MEDS: INSULIN LISPRO 100 UNIT/1 ML 3ML VIAL SQ SCH ×4 (16:30→21:00)
[2018-11-09] MEDS ORDERED: ACETAMINOPHEN 1000 MG/100 ML IV PRN (18:00)
--- NOTE | 2018-11-09 18:45 | NUR ---
2ND UNIT OF PRBC INFUSING, MOIRA NOTED AT THIS TIME, PT SITTING IN BS CHAIR, DENIES PAIN AT THIS TIME, CALL LIGHT WITHIN REACH
--- NOTE | 2018-11-09 19:20 | NUR ---
received patient aaox3, up in recliner, at side. receiving 2nd unit of blood, at this time no distress or adverse reactions. call light within reach. no needs voiced. will continue to monitor.
[2018-11-09] MEDS: INSULIN GLARGINE 100 UNITS/ML VIAL SQ SCH (21:40)
[2018-11-10] VITALS (9 sets, daily range): BP systolic 135–175; BP diastolic 69–84
[2018-11-10] MEDS: SODIUM CHLORIDE 0.9% 1000ML 1,000 ML IV SCH ×2 (00:37→21:45)
[2018-11-10] MEDS: HYDROCODONE/APAP 7.5MG-325MG 1 EA TAB PO PRN ×2 (05:01→20:50)
[2018-11-10 06:22] LABS: HEMATOCRIT 28.7 % (34.2-44.1); LYMPHOCYTES # (AUTO) 1.2 (1.0-3.2); LYMPHOCYTES % 15.7 % (18.0-39.1); MEAN CORPUSCULAR HEMOGLOBIN 33.8 pg (28-32); MEAN CORPUSCULAR HGB CONC 34.8 g/dL (31-35); MONOCYTES # (AUTO) 0.6 (0.2-0.8); MONOCYTES % 7.7 % (4.4-11.3); NEUTROPHILS # (AUTO) 5.7 (2.1-6.9); NEUTROPHILS % 75.8 % (38.7-80.0); RED BLOOD COUNT 2.96 x10e6/uL (3.6-5.1); RED CELL DISTRIBUTION WIDTH 17.8 % (11.7-14.4)
[2018-11-10 06:27] LABS: PLATELET COUNT 24 x10e3/uL (140-360)
--- NOTE | 2018-11-10 06:32 | NUR ---
spoke with Dr. Gama regarding critical plt value, no new orders received.
[2018-11-10 06:45] LABS: ANION GAP 9.9 mmol/L (8-16); BLOOD UREA NITROGEN 17 mg/dL (7-26); BUN/CREATININE RATIO 23 (6-25); CALCIUM 8.8 mg/dL (8.4-10.2); CARBON DIOXIDE 25 mmol/L (22-29); CHLORIDE 100 mmol/L (98-107); CREATININE, SERUM 0.75 mg/dL (0.57-1.11); EST GLOMERULAR FILTRATION RATE > 60 ML/MIN (60-); GLUCOSE 185 mg/dL (74-118); POTASSIUM 3.9 mmol/L (3.5-5.1); SODIUM 131 mmol/L (136-145)
--- NOTE | 2018-11-10 07:15 | NUR ---
report given to oncoming nurse, patient resting in bed. stable condition. no needs at this time. bed locked and in lowest position, call light within reach.
[2018-11-10 07:34] LABS: LYMPHOCYTES % (MANUAL) 17 % (19-48); MONOCYTES % (MANUAL) 9 % (3.4-9.0); NEUTROPHILS % (MANUAL) 74 % (40-74); PLATELET ESTIMATE MARKEDLY DECREASED; PLATELET MORPHOLOGY COMMENT NORMAL
[2018-11-10] MEDS: INSULIN LISPRO 100 UNIT/1 ML 3ML VIAL SQ SCH ×7 (08:00→21:44)
[2018-11-10] MEDS: METHYLPREDNISOLONE SOD SUCC 125 MG/2ML VIAL IV SCH ×2 (08:30→21:27)
--- NOTE | 2018-11-10 08:50 | NUR ---
SPOKE WITH MD NUNEZ, ORDERS NOTED
--- NOTE | 2018-11-10 09:23 | NUR ---
PT AMBULATING IN HALLWAY, STEADY GAIT, PCT AT SIDE
[2018-11-10 11:42] LABS: LYMPHOCYTES % 12.1 % (18.0-39.1); MEAN CORPUSCULAR HEMOGLOBIN 33.8 pg (28-32); MEAN CORPUSCULAR HGB CONC 35.5 g/dL (31-35); MEAN CORPUSCULAR VOLUME 95.4 fL (81-99); MONOCYTES # (AUTO) 0.8 (0.2-0.8); MONOCYTES % 9.2 % (4.4-11.3); NEUTROPHILS # (AUTO) 6.5 (2.1-6.9); NEUTROPHILS % 77.5 % (38.7-80.0); PLATELET COUNT 113 x10e3/uL (140-360); RED BLOOD COUNT 3.25 x10e6/uL (3.6-5.1); RED CELL DISTRIBUTION WIDTH 17.9 % (11.7-14.4)
--- NOTE | 2018-11-10 13:00 | NUR ---
BP RECHECKED AT 146/69, HR 91, SITTING IN BS CHAIR, VOICES NO NEEDS, CALL LIGHT WITHIN REACH
[2018-11-10] MEDS: PANTOPRAZOLE 40 MG 10ML VIAL IV SCH (16:15)
[2018-11-10] MEDS ORDERED: PNEUMOCOCCAL VACCINE POLYVALENT 23 MCG/0.5 ML VIAL IM ONE (17:00)
[2018-11-10] MEDS: INSULIN GLARGINE 100 UNITS/ML VIAL SQ SCH (21:45)
[2018-11-11] VITALS: BP 151/78
[2018-11-11 04:00] VITALS: BP 168/78
[2018-11-11 06:02] LABS: HEMATOCRIT 28.4 % (34.2-44.1); HEMOGLOBIN 9.9 g/dL (12.0-16.0); LYMPHOCYTES # (AUTO) 1.1 (1.0-3.2); LYMPHOCYTES % 13.4 % (18.0-39.1); MEAN CORPUSCULAR HEMOGLOBIN 33.8 pg (28-32); MEAN CORPUSCULAR HGB CONC 34.9 g/dL (31-35); MEAN CORPUSCULAR VOLUME 96.9 fL (81-99); MONOCYTES # (AUTO) 0.4 (0.2-0.8); MONOCYTES % 4.4 % (4.4-11.3); NEUTROPHILS # (AUTO) 6.5 (2.1-6.9); NEUTROPHILS % 81.6 % (38.7-80.0); PLATELET COUNT 93 x10e3/uL (140-360); RED BLOOD COUNT 2.93 x10e6/uL (3.6-5.1)
[2018-11-11 06:30] LABS: ANION GAP 10.2 mmol/L (8-16); BLOOD UREA NITROGEN 16 mg/dL (7-26); BUN/CREATININE RATIO 23 (6-25); CARBON DIOXIDE 25 mmol/L (22-29); CHLORIDE 103 mmol/L (98-107); CREATININE, SERUM 0.69 mg/dL (0.57-1.11); EST GLOMERULAR FILTRATION RATE > 60 ML/MIN (60-); GLUCOSE 178 mg/dL (74-118); POTASSIUM 4.2 mmol/L (3.5-5.1); SODIUM 134 mmol/L (136-145)
[2018-11-11] MEDS: INSULIN LISPRO 100 UNIT/1 ML 3ML VIAL SQ SCH ×4 (07:30→11:30)
--- NOTE | 2018-11-11 07:45 | NUR ---
The pt. is awake and alert with neutropenic precautions maintained. She has no issues or concerns this am.
[2018-11-11 08:00] VITALS: BP 166/75
[2018-11-11 08:17] VITALS: BP 166/75
[2018-11-11] MEDS ORDERED: METHYLPREDNISOLONE SOD SUCC 125 MG/2ML VIAL IV SCH (09:00)
[2018-11-11 12:02] VITALS: BP 156/74
--- NOTE | 2018-11-11 12:50 | NUR ---
Discharge orders received from Dr. Lundberg to discharge the pt. and Dr. Chris brice but the pt. needs t eat first.
== END 2018-11-11 13:34 | disposition home or self-care (01) | DRG 800 ==
LOC: ER 15:41 → ERHOLD 20:42 → OBSVTOIN 10-31 12:13 → IMCU 10-31 15:00 → MED/SURG 11-02 17:32
PROVIDERS: ADMIT Internal Medicine Medical Oncology; ATTEND Internal Medicine Medical Oncology
PROC: 30233R1 Transfusion of Nonautologous Platelets into Peripheral Vein, Percutaneous Approach (ICD-10-PCS; 2018-11-06)
PROC: 07TP4ZZ Resection of Spleen, Percutaneous Endoscopic Approach (ICD-10-PCS; principal; 2018-11-08 13:25)
PROC: 30233N1 Transfusion of Nonautologous Red Blood Cells into Peripheral Vein, Percutaneous Approach (ICD-10-PCS; 2018-11-09)
DX: D69.41 Evans syndrome (principal); D58.9 Hereditary hemolytic anemia, unspecified; D69.3 Immune thrombocytopenic purpura; R73.9 Hyperglycemia, unspecified; T38.0X5A Adverse effect of glucocorticoids and synthetic analogues, initial encounter; Z79.52 Long term (current) use of systemic steroids
CPT/HCPCS: 36415; 71045; 80048; 80053; 81001; 82550; 82553; 82948; 83036; 83615; 84439; 84443; 84484; 85025; 85045; 85049; 85610; 85730; 86039; 86677; 86850; 86880; 86900; 86920; 86922; 87522; 88305; 90732; 93005; 99284; G0378; J0690; J1100; J1200; J1561; J1815; J1940; J2001; J2250; J2405; J2930; J7030; J7050; J7121; J7512; P9016; P9034